=== PATIENT | female | born 1940 | race African-American/Black ===

== ENCOUNTER 2019-10-08 09:16 | Outpatient (CLI) | payer MEDICARE, SELFPAY ==
--- NOTE | ~2019-10-08 | MM_ITS ---
EXAMINATION: MM screening jamel BI w naomy HISTORY: Screening mammogram TECHNIQUE: Craniocaudal and mediolateral oblique 3-D tomosynthesis images were obtained and synthetic 2-D images were generated. CAD analysis was submitted and interpreted. COMPARISON: 08/25/2018, 08/08/2017 bilateral digital screening mammogram examinations BREAST PARENCHYMAL COMPOSITION: There are scattered areas of fibroglandular density. FINDINGS: There is a biopsy marker on each side. Bilateral benign calcifications. There is no evidenc e of suspicious mass, calcification, or architectural distortion to suggest malignancy in either [address]. There has been no suspicious interval change. IMPRESSION: 1. No mammographic evidence of malignancy. 2. Recommend routine screening mammography in one year. BI-RADS Category 2: Benign finding(s). Reviewed, dictated and finalized at location A.
== END 2019-10-08 09:17 | disposition home or self-care (01) ==
LOC: ANHIMG 09:23
PROVIDERS: PCP Family Medicine; Visit Provider Family Medicine
DX: Z12.31 Encounter for screening mammogram for malignant neoplasm of breast (principal)
CPT/HCPCS: 77063; 77067

== ENCOUNTER 2020-10-11 17:15 | Emergency (ER) | payer MEDICARE, SELFPAY ==
[2020-10-11 17:22] VITALS: BP 141/60; PULSE 93; RESP 16; TEMP 36.4; O2SAT 99
--- NOTE | 2020-10-11 17:22 | ED.SKABFB ---
HPI - Skin/Abscess/Foreign Bdy General Chief complaint: Skin/Abscess/Foreign Body Stated complaint: rash Time Seen by Provider: 10/11/20 17:30 Source: patient and RN notes reviewed Mode of arrival: ambulatory Limitations: no limitations History of Present Illness HPI narrative: 79-year-old female presents to the [facility] with itchy red bumps to the anterior upper mid chest. There are 3 bumps. Patient states it started last night and they just have gotten itchier and she has been scratching them. They are red, pink in color and mildly raised. Denies fevers. No signs of infection. Related Data Home Medications Medication Instructions Recorded Confirmed budesonide 160 mcg-glycopyr 9 2 inh INHALATION BID 03/24/20 10/11/20 mcg-formot 4.8 mcg/actuation HFA inhaler Allergies Allergy/AdvReac Type Severity Reaction Status Date / Time Penicillins Allergy Mild rash Verified 10/11/20 17:45 Review of Systems Review of Systems: All systems reviewed & are unremarkable except as noted in HPI and below Constitutional: Constitutional: Reports no additional constitutional complaints, Denies chills, Denies fever(s) and Denies weakness Cardiovascular: Cardiovascular: Reports no additional cardiovascular complaints Respiratory: Respiratory: Reports no additional respiratory complaints Musculoskeletal: Musculoskeletal: Reports no additional musculoskeletal complaints Integumentary/Breasts: Skin/Breast: Reports as per HPI and Reports rash (3 pink raised bumps) Neurologic: Reports system reviewed and no additional complaints, except as documented Psychiatric: Psychiatric: Reports no additional psychiatric complaints PMFSH Past Medical History Medical History (Updated 10/11/20 @ 17:26 by Stephanie Pascal) Benign reactive hypertension COPD (chronic obstructive pulmonary disease) Knee arthropathy Mixed hyperlipidemia Pulmonary HTN Surgical History Surgical History H/O total knee replacement S/P EVELIA (total abdominal hysterectomy) Total knee replacement status Family History Family History Mother Family history of kidney disease, Onset Age: 47 Patient's mother is Father Family history of kidney disease, Onset Age: 82 Patient's father is Sibling Patient's sister is Other Family history of chronic obstructive pulmonary disease Social History Social History Social History: Smoking status: Former smoker Tobacco type: cigarettes Second hand tobacco smoke exposure: No Smoking end date: 05/09/78 Alcohol intake: never Substance use: never Substance use type: does not use Gender identity (if verbalized by the patient): Female Comments At the time of my signature, I reviewed and agree with the nursing past medical, surgical, social, and family history. There is no relevant family history pertinent to the patient complaint. Exam Const: General: healthy appearing, no acute distress and alert Nutritional Appearance: well nourished Orientation/consciousness: patient oriented x3 Limitations: no limitations HENMT: Head: normal to inspection Eyes: Pupils: Equal, round and reactive pupils present Neck: Neck: normal visual inspection Chest: Chest palpation & inspection: normal inspection of the chest and no tenderness Chest/axillae images: 1. 3 pain, raised insect bite appearing areas that patient describes is very itchy Resp: Effort & Inspection: normal respiratory effort Auscultation: clear to auscultation bilaterally Cardio: Rate: regular rate Rhythm: regular rhythm : General: Yes no CVA tenderness Skin: General skin exam: normal color Neuro: General: patient oriented x3, moves all extremities and no meningeal signs Speech: normal speech Gait exam (Neur
== END 2020-10-11 17:41 | disposition home or self-care (01) ==
PROVIDERS: Emergency Provider Nurse Practitioner; PCP Family Medicine
DX: S20.364A Insect bite (nonvenomous) of middle front wall of thorax, initial encounter (principal); W57.XXXA Bitten or stung by nonvenomous insect and other nonvenomous arthropods, initial encounter; Z87.891 Personal history of nicotine dependence; J44.9 Chronic obstructive pulmonary disease, unspecified; E78.2 Mixed hyperlipidemia; I27.20 Pulmonary hypertension, unspecified; Z96.659 Presence of unspecified artificial knee joint
CPT/HCPCS: 99213; G0463

== ENCOUNTER 2020-10-29 16:53 | Outpatient (CLI) | payer MEDICARE, SELFPAY ==
--- NOTE | ~2020-10-29 | XR_ITS ---
EXAMINATION: XR sacroiliac joints min 3V DATE: 10/29/2020 17:20 INDICATION: Low back pain. TECHNIQUE: 3 views of the sacroiliac joints were obtained. COMPARISON: None. FINDINGS: Bone alignment is normal. No fracture. There is mild osteoarthritis of the sacroiliac joint s. There is moderate right hip osteoarthritis and mild left hip osteoarthritis. IMPRESSION: 1. Mild osteoarthritis of the sacroiliac joints. No evidence of inflammatory arthropathy. 2. 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 Reviewed, dictated and finalized at location A. IMPRESSION: 1. Mild osteoarthritis of the sacroiliac joints. No evidence of inflammatory ar thropathy. 2. 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
--- NOTE | ~2020-10-29 | XR_ITS ---
EXAMINATION: XR lumbar spine 2-3V DATE: 10/29/2020 17:20 INDICATION: Low back pain. TECHNIQUE: 3 views of lumbar spine were obtained. COMPARISON: None. FINDINGS: There is 4 degrees levocurvature of lumbar spine. Vertebral body heights are normal. There is moderately decreased disc height at L5-S1 with endplate remodeling. There are endplate osteophytes at all levels. 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 IMPRESSION: 1. Moderate lower lumbar spondylosis. Reviewed, dictated and finalized at location A.
== END 2020-10-29 16:54 | disposition home or self-care (01) ==
LOC: ANHIMG 16:56
PROVIDERS: PCP Family Medicine; Visit Provider Physician Assistant
DX: M47.898 Other spondylosis, sacral and sacrococcygeal region (principal); M16.0 Bilateral primary osteoarthritis of hip; M47.816 Spondylosis without myelopathy or radiculopathy, lumbar region
CPT/HCPCS: 72100; 72202

== ENCOUNTER 2020-10-30 15:59 | Outpatient (CLI) | payer MEDICARE, SELFPAY ==
--- NOTE | ~2020-10-30 | MM_ITS ---
EXAMINATION: MM screening jamel BI w naomy HISTORY: Screening mammogram TECHNIQUE: Craniocaudal and mediolateral oblique 3-D tomosynthesis images were obtained and synthetic 2-D images were generated. CAD analysis was submitted and interpreted. COMPARISON: 10/08/2019, or 01/2019, 08/08/2017 bilateral digital screening mammogram examinations BREAST PARENCHYMAL COMPOSITION: There are scattered areas of fibroglandular density. FINDINGS: Multiple breast biopsy markers are noted bilaterally. History of bilateral benign breast bi opsies. Numerous bilateral benign breast calcifications are again noted. There is no evidence of suspicious m ass, calcification, or architectural distortion to suggest malignancy in either breast. There has bee n no suspicious interval change. IMPRESSION: 1. No mammographic evidence of malignancy. 2. Recommend routine screening mammography in one year. BI-RADS Category 2: Benign finding(s). Reviewed, dictated and finalized at location A.
== END 2020-10-30 16:00 | disposition home or self-care (01) ==
LOC: ANHIMG 16:02
PROVIDERS: PCP Family Medicine; Visit Provider Family Medicine
DX: Z12.31 Encounter for screening mammogram for malignant neoplasm of breast (principal)
CPT/HCPCS: 77063; 77067

== ENCOUNTER 2021-06-14 09:08 | Emergency (ER) | payer MEDICARE, SELFPAY ==
--- NOTE | 2021-06-14 09:20 | ED.FEMALEGU ---
HPI - Female Genitourinary General Chief complaint: Urogenital-Female Stated complaint: UTI Time Seen by Provider: 06/14/21 09:22 Source: patient, RN notes reviewed and old records reviewed Mode of arrival: ambulatory Limitations: no limitations History of Present Illness HPI Narrative: 80-year-old female presents to the [facility] with complaints of a urinary symptoms. Patient reports that since Tuesday, 2 days has had frequency, urgency and pressure. Denies fevers, abdominal pains, flank pain. No nausea vomiting or diarrhea. Denies chest pain MD elicited complaint: UTI Related Data Allergies Allergy/AdvReac Type Severity Reaction Status Date / Time Penicillins Allergy Mild rash Verified 11/21/20 10:57 Review of Systems Review of Systems: All systems reviewed & are unremarkable except as noted in HPI and below Constitutional: Constitutional: Reports no additional constitutional complaints, Denies chills and Denies fatigue Eyes: Eyes: Reports no additional eye complaints ENT: Reports system reviewed and no additional complaints, except as documented Cardiovascular: Cardiovascular: Reports no additional cardiovascular complaints Respiratory: Respiratory: Reports no additional respiratory complaints Gastrointestinal: Gastrointestinal: Reports no additional gastrointestinal complaints, Denies abdominal pain, Denies diarrhea, Denies nausea and Denies vomiting Genitourinary: Genitourinary: Reports as per HPI, Denies hematuria, Reports nocturia, Reports dysuria, Denies flank pain, Denies urinary incontinence and Denies vaginal discharge Musculoskeletal: Musculoskeletal: Reports no additional musculoskeletal complaints and Denies back pain Integumentary/Breasts: Skin/Breast: Reports system reviewed and no additional complaints, except as docu Neurologic: Reports system reviewed and no additional complaints, except as documented Psychiatric: Psychiatric: Reports no additional psychiatric complaints Endocrine: Endocrine: Denies fatigue Allergic/Immunologic: Allergic/Immunologic: Reports no additional allergic/immunologic complaints PENDING SALE TO [facility] Past Medical History Medical History (Updated 06/14/21 @ 09:31 by Stephanie Pascal) Benign reactive hypertension COPD (chronic obstructive pulmonary disease) Knee arthropathy Mixed hyperlipidemia Pulmonary HTN Surgical History Surgical History H/O total knee replacement S/P EVELIA (total abdominal hysterectomy) Total knee replacement status Family History Family History Mother Family history of kidney disease, Onset Age: 47 Patient's mother is Father Family history of kidney disease, Onset Age: 82 Patient's father is Sibling Patient's sister is Other Family history of chronic obstructive pulmonary disease Social History Social History Social History: Smoking status: Former smoker Tobacco type: cigarettes Second hand tobacco smoke exposure: No Smoking end date: 05/09/78 Alcohol intake: never Substance use: never Substance use type: does not use Gender identity (if verbalized by the patient): Female Sexual Orientation (if Verbalized by the Patient): Straight or Heterosexual Comments At the time of my signature, I reviewed and agree with the nursing past medical, surgical, social, and family history. There is no relevant family history pertinent to the patient complaint. Exam Const: General: healthy appearing, no acute distress and alert Nutritional Appearance: well nourished Orientation/consciousness: patient oriented x3 Limitations: no limitations HENMT: Head: normal to inspection Eyes: Conjunctivae: conjunctivae normal Pupils: Equal, round and reactive pupils present Neck: Neck: normal visual inspection, no lymphadenopa
[2021-06-14 09:25] VITALS: BP 126/70; PULSE 86; RESP 18; TEMP 36.5; O2SAT 100
== END 2021-06-14 09:35 | disposition home or self-care (01) ==
PROVIDERS: Emergency Provider Nurse Practitioner; PCP Family Medicine
DX: N30.01 Acute cystitis with hematuria (principal); Z87.891 Personal history of nicotine dependence; J44.9 Chronic obstructive pulmonary disease, unspecified; E78.2 Mixed hyperlipidemia; I27.20 Pulmonary hypertension, unspecified; Z96.659 Presence of unspecified artificial knee joint
CPT/HCPCS: 81003; 87077; 87086; 87186; 99213; G0463

== ENCOUNTER 2021-10-07 17:58 | Emergency (ER) | payer MEDICARE, SELFPAY ==
[2021-10-07 18:18] VITALS: BP 142/68; PULSE 85; RESP 16; TEMP 36.4; O2SAT 100
--- NOTE | 2021-10-07 18:44 | ED.FEMALEGU ---
HPI - Female Genitourinary General Chief complaint: Urogenital-Female Stated complaint: uti Time Seen by Provider: 10/07/21 18:45 Source: patient and RN notes reviewed Mode of arrival: ambulatory Limitations: no limitations History of Present Illness HPI Narrative: 80-year-old female presented for complaint of burning with urination, urinary frequency, and suprapubic pressure for about 3 days. Endorses occasional diarrhea. endorses a history of UTIs and states this feels the same. She denies associated nausea, vomiting, flank pain, hematuria, fevers or chills. She has not taken anything for symptoms. Related Data Allergies Allergy/AdvReac Type Severity Reaction Status Date / Time Penicillins Allergy Mild rash Verified 10/07/21 18:49 Review of Systems Review of Systems: CONSTITUTIONAL: Denies body aches, fever, chills, or sweats. CARDIOVASCULAR: Denies chest pain, palpitations, or edema. RESPIRATORY: Denies cough or dyspnea. GASTROINTESTINAL: Denies abdominal pain, nausea, vomiting, or diarrhea. GENITOURINARY: Reports dysuria, frequency, urgency MUSCULOSKELETAL: Denies back pain or myalgia. [facility] Past Medical History Medical History Benign reactive hypertension COPD (chronic obstructive pulmonary disease) Crossover toe deformity of right foot Knee arthropathy Mixed hyperlipidemia JOSE on CPAP Pulmonary HTN Surgical History Surgical History H/O total knee replacement S/P EVELIA (total abdominal hysterectomy) Total knee replacement status Family History Family History Mother Family history of kidney disease, Onset Age: 47 Patient's mother is Father Family history of kidney disease, Onset Age: 82 Patient's father is Sibling Patient's sister is Other Family history of chronic obstructive pulmonary disease Social History Social History Social History: Smoking status: Former smoker Tobacco type: cigarettes Second hand tobacco smoke exposure: No Smoking end date: 05/09/78 Alcohol intake: never Substance use: never Substance use type: does not use Gender identity (if verbalized by the patient): Female Sexual Orientation (if Verbalized by the Patient): Straight or Heterosexual Comments At time of signature, I have reviewed and agree with nursing past medical, surgical, social and family history unless otherwise noted. Please see nursing chart for further information. There is no relevant family history pertinent to the presenting complaint Exam Narrative: GENERAL: Well-appearing ENT: Mucous membranes pink and moist. NECK: Normal AROM. Supple. CHEST: No respiratory distress. Clear to auscultation. HEART: Regular rate and rhythm. ABDOMEN: Soft, nontender, nondistended, normal active bowel sounds. No CVA tenderness SKIN: Warm, dry, no rash. NEURO: No focal deficits. Alert and oriented x3. Gait steady. PSYCH: Normal affect. No signs of depression or anxiety. Course Course Emergency Course: Patient is aware of diagnosis, understands and agrees to treatment plan. Anticipatory guidance given. Patient agrees to follow-up as directed and is aware of reasons to seek care at the emergency department. Portions of this record may have been created with voice recognition software Level of Care: Express Care Visit Vital Signs Vital signs: Vital Signs Temperature 97.5 F L 10/07/21 18:18 Pulse Rate 85 10/07/21 18:18 Respiratory Rate 16 10/07/21 18:18 Blood Pressure 142/68 H 10/07/21 18:18 Pulse Oximetry 100 10/07/21 18:18 Oxygen Delivery Room Air 10/07/21 18:18 Temperature 97.5 F L 10/07/21 18:18 Pulse Rate 85 10/07/21 18:18 Respiratory Rate 16 10/07/21
== END 2021-10-07 19:03 | disposition home or self-care (01) ==
PROVIDERS: Emergency Provider Nurse Practitioner Family; PCP Family Medicine
DX: R30.0 Dysuria (principal); Z87.891 Personal history of nicotine dependence; J44.9 Chronic obstructive pulmonary disease, unspecified; E78.2 Mixed hyperlipidemia; G47.33 Obstructive sleep apnea (adult) (pediatric); I10 Essential (primary) hypertension; I27.20 Pulmonary hypertension, unspecified
CPT/HCPCS: 81003; 99213; G0463

== ENCOUNTER 2021-12-07 15:25 | Outpatient (CLI) | payer MEDICARE, SELFPAY ==
--- NOTE | ~2021-12-07 | MM_ITS ---
EXAMINATION: MM screening jamel BI w naomy HISTORY: Screening TECHNIQUE: Craniocaudal and mediolateral oblique 3-D tomosynthesis images were obtained and synthetic 2-D images were generated. CAD analysis was submitted and interpreted. COMPARISON: Comparison to multiple prior studies sequentially, with oldest reviewed study dated 01/31. BREAST PARENCHYMAL COMPOSITION: The breasts are heterogenously dense, which may obscure small masses FINDINGS: There is a new focal asymmetry laterally in the right breast on CC view. There are stable b enign-appearing bilateral breast calcifications. The left breast is stable without evidence for malig parul. IMPRESSION: 1. New focal right breast asymmetry laterally on CC view. 2. Additional mammographic views and possible breast ultrasound are recommended. BI-RADS Category 0: Incomplete: Needs additional imaging evaluation. Reviewed, dictated and finalized at location A. IMPRESSION: 1. New focal right breast asymmetry laterally on CC view. 2. Additional mammographic views and possible breast ultrasound are recommended . BI-RADS Category 0: Incomplete: Needs additional imaging evaluation.
== END 2021-12-07 15:26 | disposition home or self-care (01) ==
LOC: ANHIMG 15:27
PROVIDERS: PCP Family Medicine; Visit Provider Family Medicine
DX: Z12.31 Encounter for screening mammogram for malignant neoplasm of breast (principal); R92.8 Other abnormal and inconclusive findings on diagnostic imaging of breast
CPT/HCPCS: 77063; 77067

== ENCOUNTER 2022-01-19 11:17 | Outpatient (CLI) | payer MEDICARE, SELFPAY ==
--- NOTE | ~2022-01-19 | MMUS_ITS ---
EXAMINATION: MM diagnostic jamel RT w naomy, US breast RT limited HISTORY: New focal right breast asymmetry reported in lateral right breast on 12/08/2019 screening mamm ogram TECHNIQUE: Additional U spot MLO and CC 3-D tomosynthesis images of the right breast were performed a nd synthetic 2-D images were generated. CAD analysis was submitted and interpreted. High resolution u pper outer and lower-outer quadrant right breast ultrasound was performed. COMPARISON: 12/07/2021 bilateral screening mammogram 10/26/2020, 10/08/2019 bilateral screening mammogram examinations FINDINGS: MAMMOGRAPHIC FINDINGS: Biopsy markers are noted. Numerous benign calcifications are scattered throughout the right breast. N o suspicious mass or interval architectural distortion is evident mammographically. No skin thickenin g or retraction. ULTRASOUND: Right breast 9:00 1 cm from nipple: 2.8 x 4.1 x 4.7 mm cyst 9:00 near nipple: Approximately 5 mm irregular antiparallel hypoechoic area with mild shadowing; ultr asound-guided biopsy is recommended. There is some shadowing from calcification at 12:00. IMPRESSION: 1. Irregular and typed parallel hypoechoic approximately 5 mm lesion of right breast at 9:00 near nip ple 2. Ultrasound-guided biopsy of 9:00 hypoechoic area is recommended BI-RADS category 4, suspicious findings. Dr. Olea telephoned the report and ultrasound-guided biopsy recommendation of the right breast at 9:0 0 near the nipple on 01/19/2022 at 1323 hours to the doctor's exchange. Reviewed, dictated and finalized at location A. IMPRESSION: 1. Irregular and typed parallel hypoechoic approximately 5 mm lesion of right b reast at 9:00 near nipple 2. Ultrasound-guided biopsy of 9:00 hypoechoic area is recommended BI-RADS category 4, suspicious findings. Dr. Olea telephoned the report and ultrasound-guided biopsy recommendation of t he right breast at 9:00 near the nipple on 01/19/2022 at 1323 hours to the docto r's exchange.
== END 2022-01-19 11:18 | disposition home or self-care (01) ==
PROVIDERS: PCP Family Medicine; Visit Provider Family Medicine
DX: N63.15 Unspecified lump in the right breast, overlapping quadrants (principal); R92.8 Other abnormal and inconclusive findings on diagnostic imaging of breast; N60.01 Solitary cyst of right breast
CPT/HCPCS: 76642; 77061; 77065; G0279

== ENCOUNTER 2022-01-29 09:52 | Outpatient (CLI) | payer MEDICARE, SELFPAY ==
--- NOTE | ~2022-01-29 | US_ITS ---
EXAMINATION: Consultation US HISTORY: Patient presents for biopsy of a right breast mass at the 9:00 location. COMPARISON: 01/19/2022, 12/02/2014 TECHNIQUE: Limited right breast ultrasound is performed at the 9:00 location near the nipple. FINDINGS: The right breast mass identified for biopsy hasn't appearance similar to the comparison ult rasounds. There is also a questionable biopsy marker in the mass. It was discussed with the patient t hat this mass may have previously undergone biopsy and a course of short-term follow-up was decided u larissa. IMPRESSION: Probably benign right breast mass. Follow-up diagnostic right mammogram and ultrasound in six months are recommended. BI-RADS category 3, probably benign findings. Reviewed, dictated and finalized at location A. IMPRESSION: Probably benign right breast mass. Follow-up diagnostic right mammogram and ult rasound in six months are recommended. BI-RADS category 3, probably benign findings.
== END 2022-01-29 09:53 | disposition home or self-care (01) ==
LOC: ANHIMG 09:53
PROVIDERS: PCP Family Medicine; Visit Provider Nurse Practitioner Gerontology
DX: R92.8 Other abnormal and inconclusive findings on diagnostic imaging of breast (principal)
CPT/HCPCS: 99199

== ENCOUNTER 2022-02-01 16:40 | Emergency (ER) | payer MEDICARE, SELFPAY ==
[2022-02-01 17:04] VITALS: BP 138/70; PULSE 94; RESP 16; TEMP 37.2; O2SAT 100
--- NOTE | 2022-02-01 18:05 | ED.FEMALEGU ---
HPI - Female Genitourinary General Chief complaint: Urogenital-Female Stated complaint: UTI Time Seen by Provider: 02/01/22 18:06 Source: patient and RN notes reviewed Mode of arrival: ambulatory Limitations: no limitations History of Present Illness HPI Narrative: 81-year-old female presents concern for 4-day history of painful urination, frequency, lower abdominal pressure, chills. She reports a history of problems with urination, urinary tract symptoms. She denies back pain, abdominal pain, fever, body aches, nausea, vomiting. MD elicited complaint: UTI Related Data Home Medications Medication Instructions Recorded Confirmed budesonide 160 mcg-glycopyr 9 2 inh inhalation DIRECTED 02/01/22 02/01/22 mcg-formot 4.8 mcg/actuation HFA inhaler ([employer]) Allergies Allergy/AdvReac Type Severity Reaction Status Date / Time Penicillins Allergy Mild rash Verified 02/01/22 16:43 Review of Systems Review of Systems: CONSTITUTIONAL: Denies malaise, chills, sweats, or fever. CARDIOVASCULAR: Denies chest pain, palpitations, or edema. RESPIRATORY: Denies cough or dyspnea. GASTROINTESTINAL: Denies abdominal pain, nausea, vomiting, diarrhea GENITOURINARY: Reports dysuria, frequency, suprapubic pressure. Denies flank pain or hematuria. SKIN: Denies rash or itching. MUSCULOSKELETAL: Denies back pain or myalgia. All systems reviewed & are unremarkable except as noted in HPI and below PMFSH Past Medical History Medical History Benign reactive hypertension COPD (chronic obstructive pulmonary disease) Crossover toe deformity of right foot Knee arthropathy Mixed hyperlipidemia JOSE on CPAP Pulmonary HTN Surgical History Surgical History H/O total knee replacement S/P EVELIA (total abdominal hysterectomy) Total knee replacement status Family History Family History Mother Family history of kidney disease, Onset Age: 47 Patient's mother is Father Family history of kidney disease, Onset Age: 82 Patient's father is Sibling Patient's sister is Other Family history of chronic obstructive pulmonary disease Social History Social History (Reviewed 12/31/21 @ 10:03 by Sona Fernández Social History: Smoking status: Former smoker Tobacco type: cigarettes Second hand tobacco smoke exposure: No Smoking end date: 05/09/78 Alcohol intake: never Substance use: never Substance use type: does not use Gender identity (if verbalized by the patient): Female Sexual Orientation (if Verbalized by the Patient): Straight or Heterosexual Comments At time of signature, agree with nursing past medical, surgical, social and family history. There is no relevant family history pertinent to the presenting complaint Exam Narrative: GENERAL: Well-appearing, well-nourished, and in no acute distress. HEAD: Normocephalic. EYES: PERRLA, conjunctivae clear. NECK: Supple. No lymphadenopathy CHEST: Clear to auscultation. No respiratory distress. HEART: Regular rate and rhythm. ABDOMEN: Soft, nontender upon palpation, nondistended, normal active bowel sounds, no palpable or pulsatile masses, no guarding. No CVA tenderness SKIN: Warm, dry, no rash. NEURO: Alert and oriented x3. PSYCH: Normal mood and affect Course Course Emergency Course: Patient is aware of diagnosis, understands and agrees to treatment plan. Anticipatory guidance given. Patient agrees to follow-up as directed and is aware of reasons to seek care at the emergency department. Portions of this record may have been created with voice recognition software Level of Care: Express Care Visit Vital Signs Vital signs: Vital Signs Temperature 99.0 F 02/01/22 17:04 Pulse Rate 94 02/01/22 17:04 Respiratory R
== END 2022-02-01 18:23 | disposition home or self-care (01) ==
PROVIDERS: Emergency Provider Nurse Practitioner; PCP Family Medicine
DX: R30.0 Dysuria (principal); R35.0 Frequency of micturition; J44.9 Chronic obstructive pulmonary disease, unspecified; E78.5 Hyperlipidemia, unspecified; G47.33 Obstructive sleep apnea (adult) (pediatric); Z96.659 Presence of unspecified artificial knee joint; Z87.891 Personal history of nicotine dependence
CPT/HCPCS: 81003; 87086; 99213; G0463

== ENCOUNTER 2022-02-23 01:16 | Day surgery (SDC) | payer MEDICARE, SELFPAY ==
[2022-02-08 13:51] VITALS: BMI 31.8
[2022-02-23 08:31] VITALS: BP 143/70; PULSE 82; RESP 18; TEMP 36.1; O2SAT 97
[2022-02-23] MEDS: LACTATED RINGERS 1,000 ML 150 ML IV CONT (08:33)
--- NOTE | 2022-02-23 09:12 | PM.HPGS ---
History of Present Illness History of Present Illness Consent: Risks, benefits, and alternatives have been discussed and questions answered. Patient agrees to proceed with procedure. Chief complaint: hx colon polyps Narrative: Jayro Arenas is a 81 year old female Presents for surveillance colonoscopy. Patient gives a history of prior colon polyps more than 5 years ago performed elsewhere. Patient reports that her current weight appetite and bowel movements are normal. She denies abdominal pain. She denies any bleeding. She has normal stools are present. Family history is noncontributory. Review of Systems Review of Systems: Review of systems is noncontributory. [facility] Past Medical History Medical History Benign reactive hypertension COPD (chronic obstructive pulmonary disease) Crossover toe deformity of right foot Knee arthropathy Mixed hyperlipidemia JOSE on CPAP Pulmonary HTN Surgical History Surgical History H/O total knee replacement S/P EVELIA (total abdominal hysterectomy) Total knee replacement status Family History Family History Mother Family history of kidney disease, Onset Age: 47 Patient's mother is Father Family history of kidney disease, Onset Age: 82 Patient's father is Sibling Patient's sister is Other Family history of chronic obstructive pulmonary disease Social History Social History Social History: Smoking packs per day: 0.5 Smoking cigarettes per day: 10.0 Years smoked: 30 Smoking pack-years: 15.00 Smoking status: Former smoker Tobacco type: cigarettes Second hand tobacco smoke exposure: No Smoking end date: 05/09/78 Alcohol intake: never Substance use: never Substance use type: does not use Living arrangements: with family Gender identity (if verbalized by the patient): Female Sexual Orientation (if Verbalized by the Patient): Straight or Heterosexual Spiritual care concerns: No Meds Home Medications and Allergies Home Medications Medication Instructions Recorded Confirmed Type atorvastatin 10 mg tablet 10 mg PO DAILY #90 tabs 12/31/21 02/23/22 Rx famotidine 40 mg tablet 40 mg PO DAILY #90 tabs 12/31/21 02/23/22 Rx hydrochlorothiazide 12.5 mg tablet 12.5 mg PO DAILY #90 tabs 12/31/21 02/23/22 Rx budesonide 160 mcg-glycopyr 9 2 inh inhalation DIRECTED 02/01/22 02/23/22 History mcg-formot 4.8 mcg/actuation HFA inhaler ([employer]) albuterol 90 mcg/actuation aerosol 90 mcg inhalation PRN 02/08/22 02/23/22 History inhaler carvedilol 12.5 mg tablet 12.5 mg PO Q12H 02/23/22 02/23/22 History Allergies Allergy/AdvReac Type Severity Reaction Status Date / Time Penicillins Allergy Mild rash Verified 02/23/22 08:27 Sulfa (Sulfonamide Allergy Rash Verified 02/23/22 08:27 Antibiotics) Vital Signs Vital Signs - 24 hr 02/23/22 08:31 Temperature 96.9 F L Pulse Rate 82 Respiratory Rate 18 Blood Pressure 143/70 H Pulse Oximetry 97 Oxygen Delivery Room Air Exam Narrative: Physical exam reveals patient to be alert. Vital signs stable. HEENT exam is unremarkable. Patient is anicteric. Lungs are clear to auscultation and percussion. Heart is without murmur or extra sounds. Abdomen bowel sounds are present soft nontender with no organomegaly. Digital external rectal exam is normal. Assessment and Plan Assessment and plan (1) Colon cancer screening: Code(s): Z12.11 - Encounter for screening for malignant neoplasm of colon Status: Acute Assessment and Plan: Patient presents for neoplasia screening colonoscopy. She reports prior history of colon polyps. Colonoscopy to be performed today. Further recom
--- NOTE | 2022-02-23 09:15 | WPDANESEPPF ---
Anes - Initial Pre Proc Eval Procedure: Operation Date: 02/23/22 09:45 Proposed Procedures p Screening Colonoscopy - Nabil Redmond MD Date/Time: 02/23/22 09:15 Surgeon: Nabil Redmond MD Pre Op Diagnosis: hx colon polyps Patient Data Age: 81 Gender: F Height: 1.63 m Weight: 83.2 kg Last Vital Signs Temp 96.9 F L 02/23/22 08:31 Pulse 82 02/23/22 08:31 Resp 18 02/23/22 08:31 BP 143/70 H 02/23/22 08:31 Pulse Ox 97 02/23/22 08:31 O2 Del Method Room Air 02/23/22 08:31 Allergies Allergy/AdvReac Type Severity Reaction Status Date / Time Penicillins Allergy Mild rash Verified 02/23/22 08:27 Sulfa (Sulfonamide Allergy Rash Verified 02/23/22 08:27 Antibiotics) Home Medications Medication Instructions Recorded Confirmed Type atorvastatin 10 mg tablet 10 mg PO DAILY #90 tabs 12/31/21 02/23/22 Rx famotidine 40 mg tablet 40 mg PO DAILY #90 tabs 12/31/21 02/23/22 Rx hydrochlorothiazide 12.5 mg tablet 12.5 mg PO DAILY #90 tabs 12/31/21 02/23/22 Rx budesonide 160 mcg-glycopyr 9 2 inh inhalation DIRECTED 02/01/22 02/23/22 History mcg-formot 4.8 mcg/actuation HFA inhaler (Breztri Aerosphere) albuterol 90 mcg/actuation aerosol 90 mcg inhalation PRN 02/08/22 02/23/22 History inhaler carvedilol 12.5 mg tablet 12.5 mg PO Q12H 02/23/22 02/23/22 History Patient hx anesthesia problems: none Family hx anesthesia problems: none Results Review: All pre-operative results and documents have been reviewed as part of the pre-operative evaluation. [facility] Past Medical History Medical History Benign reactive hypertension COPD (chronic obstructive pulmonary disease) Crossover toe deformity of right foot Knee arthropathy Mixed hyperlipidemia JOSE on CPAP Pulmonary HTN Surgical History Surgical History H/O total knee replacement S/P EVELIA (total abdominal hysterectomy) Total knee replacement status Family History Family History Mother Family history of kidney disease, Onset Age: 47 Patient's mother is Father Family history of kidney disease, Onset Age: 82 Patient's father is Sibling Patient's sister is Other Family history of chronic obstructive pulmonary disease Social History Social History Social History: Smoking packs per day: 0.5 Smoking cigarettes per day: 10.0 Years smoked: 30 Smoking pack-years: 15.00 Smoking status: Former smoker Tobacco type: cigarettes Second hand tobacco smoke exposure: No Smoking end date: 05/09/78 Alcohol intake: never Substance use: never Substance use type: does not use Living arrangements: with family Gender identity (if verbalized by the patient): Female Sexual Orientation (if Verbalized by the Patient): Straight or Heterosexual Spiritual care concerns: No Anes - Eval Final PreProcedure Day of Procedure 02/23/22 09:15 Patient weight: obese Heart: regular rate and rhythm Lungs: clear to auscultation Airway: Mallampati scale class II Neurological: alert and oriented Last oral intake: >/= 8 hours ASA classification: III Emergent: no Anesthetic plan: proceed Anesthesia type and monitoring: general GIVS and standard monitoring Results Review: All pre-operative results and documents have been reviewed as part of the pre-operative evaluation. Informed Consent: The patient's anesthetic plan and its attendant risks and benefits were discussed with the patient/family/POA. Questions were solicited and answers provided to the satisfaction of the patient/family/POA.
[2022-02-23 10:52] VITALS: BP 117/63; PULSE 72; RESP 24; O2SAT 99
[2022-02-23 11:02] VITALS: BP 119/72; PULSE 74; RESP 16; O2SAT 100
[2022-02-23 11:12] VITALS: BP 143/75; PULSE 66; RESP 18; O2SAT 99
== END 2022-02-23 11:17 | disposition home or self-care (01) ==
PROVIDERS: PCP Family Medicine; Visit Provider Internal Medicine Gastroenterology
PROC: 0DJD8ZZ Inspection of Lower Intestinal Tract, Via Natural or Artificial Opening Endoscopic (ICD-10-PCS; CPT 45378; principal; 2022-02-23 09:45)
DX: Z12.11 Encounter for screening for malignant neoplasm of colon (principal); Z86.010 Personal history of colon polyps; K64.8 Other hemorrhoids; K57.30 Diverticulosis of large intestine without perforation or abscess without bleeding; Z79.51 Long term (current) use of inhaled steroids; J44.9 Chronic obstructive pulmonary disease, unspecified; I10 Essential (primary) hypertension; E78.2 Mixed hyperlipidemia; I27.20 Pulmonary hypertension, unspecified; Z87.891 Personal history of nicotine dependence; E66.9 Obesity, unspecified; Z68.31 Body mass index [BMI] 31.0-31.9, adult
CPT/HCPCS: G0105; J2001; J2704; J7120

== ENCOUNTER 2022-08-26 13:53 | Outpatient (CLI) | payer MEDICARE, SELFPAY ==
--- NOTE | ~2022-08-26 | MMUS_ITS ---
EXAMINATION: MM diagnostic jamel RT w naomy, US breast RT limited HISTORY: Six-month follow-up for probably benign right breast mass TECHNIQUE: Craniocaudal, mediolateral, and mediolateral oblique 3-D tomosynthesis images of the breas ts were performed and synthetic 2-D images were generated. CAD analysis was submitted and interpreted . High resolution limited right breast ultrasound was performed. COMPARISON: 01/29/2022, 01/19/2022, 12/07/2021, 10/30/2020, 10/08/2019 BREAST PARENCHYMAL COMPOSITION: There are scattered areas of fibroglandular density. FINDINGS: MAMMOGRAPHIC FINDINGS: Scattered benign-appearing calcifications are present. No suspicious mass, calcification, or architec tural distortion are identified to suggest malignancy. There has been no suspicious interval change. ULTRASOUND: The previously described mass at the 9:00 location near the nipple is not definitely identified. No s uspicious cystic or solid mass is seen. IMPRESSION: 1. Previously described right breast mass is not definitely identified. 2. Routine screening mammography is recommended, due in six months. BI-RADS Category 2: Benign finding(s). Reviewed, dictated and finalized at location A. IMPRESSION: 1. Previously described right breast mass is not definitely identified. 2. Routine screening mammography is recommended, due in six months. BI-RADS Category 2: Benign finding(s).
== END 2022-08-26 13:54 | disposition home or self-care (01) ==
PROVIDERS: PCP Family Medicine; Visit Provider Family Medicine
DX: R92.8 Other abnormal and inconclusive findings on diagnostic imaging of breast (principal)
CPT/HCPCS: 76642; 77061; 77065; G0279

== ENCOUNTER 2022-12-28 10:53 | Emergency (ER) | payer MEDICARE, SELFPAY ==
--- NOTE | 2022-12-28 11:03 | ED.FEMALEGU ---
HPI - Female Genitourinary General Chief complaint: Urogenital-Female Stated complaint: urinary problem Source: patient and RN notes reviewed History of Present Illness HPI Narrative: 82 yo F presents to urgent care with complaints of lower abdominal pressure and burning with urination since Tuesday. Denies any fevers, chills, vomiting, diarrhea, chest pain, or SOB. Pt states she tried drinking a lot of cranberry juice yesterday with no relief. Currently taking azithromycin [id number] for COPD. Related Data Home Medications Medication Instructions Recorded Confirmed budesonide 160 mcg-glycopyr 9 2 inh inhalation DIRECTED 02/01/22 12/28/22 mcg-formot 4.8 mcg/actuation HFA inhaler (Breztri Aerosphere) albuterol 90 mcg/actuation aerosol 90 mcg inhalation PRN 02/08/22 12/28/22 inhaler Allergies Allergy/AdvReac Type Severity Reaction Status Date / Time Penicillins Allergy Mild rash Verified 12/28/22 11:01 Sulfa (Sulfonamide Allergy Rash Verified 12/28/22 11:01 Antibiotics) Review of Systems Review of Systems: CONSTITUTIONAL: Denies fever, chills, or sweats. EYES: Denies visual changes, redness, or discharge. ENT: Denies otalgia and sore throat CARDIOVASCULAR: Denies chest pain, palpitations, or edema. RESPIRATORY: Denies cough or dyspnea. GASTROINTESTINAL: Denies abdominal pain, nausea, vomiting, or diarrhea. GENITOURINARY: lower bladder pressure and burning with urination SKIN: Denies rash or itching. MUSCULOSKELETAL: Denies back pain, joint pain, or myalgia. NEUROLOGIC: Denies headache, numbness, or weakness. Pertinent positives per HPI. [facility] Past Medical History Medical History Benign reactive hypertension COPD (chronic obstructive pulmonary disease) Crossover toe deformity of right foot Knee arthropathy Mixed hyperlipidemia JOSE on CPAP Pulmonary HTN Surgical History Surgical History H/O total knee replacement S/P EVELIA (total abdominal hysterectomy) Total knee replacement status Family History Family History Mother Family history of kidney disease, Onset Age: 47 Patient's mother is Father Family history of kidney disease, Onset Age: 82 Patient's father is Sibling Patient's sister is Other Family history of chronic obstructive pulmonary disease Social History Social History Social History: Smoking packs per day: 0.5 Smoking cigarettes per day: 10.0 Years smoked: 30 Smoking pack-years: 15.00 Smoking status: Former smoker Tobacco type: cigarettes Second hand tobacco smoke exposure: No Smoking end date: 05/09/78 Alcohol intake: never Substance use: never Substance use type: does not use Lack of Transportation: No Lack of Food: Never True Current Housing: I Have Housing Concerned About Future Housing: No Difficulty Paying Gas/Electric Bills: No Difficulty Paying for Meds: No Currently Unemployed: YES Education: Decline to Answer Difficulty w/ Childcare or Family Care: No Living arrangements: with family Occupation/Education: retired Gender identity (if verbalized by the patient): Female Sexual Orientation (if Verbalized by the Patient): Straight or Heterosexual Spiritual care concerns: No Comments At the time of my signature, I reviewed and agree with the nursing past medical, surgical, social, and family history. There is no relevant family history pertinent to the patient complaint. Exam Narrative: GENERAL: This is a well-nourished, well-developed patient, in no apparent distress. HEAD: normocephalic, atraumatic. EYES: Sclera clear/white. Vision is grossly intact. EARS: External ears normal, auditory
[2022-12-28 11:08] VITALS: BP 132/71; PULSE 89; RESP 16; TEMP 36.7; O2SAT 99
== END 2022-12-28 11:30 | disposition home or self-care (01) ==
PROVIDERS: Emergency Provider Nurse Practitioner Family; PCP Family Medicine
DX: N39.0 Urinary tract infection, site not specified (principal); Z87.891 Personal history of nicotine dependence; J44.9 Chronic obstructive pulmonary disease, unspecified; E78.2 Mixed hyperlipidemia; G47.33 Obstructive sleep apnea (adult) (pediatric); I27.20 Pulmonary hypertension, unspecified
CPT/HCPCS: 81003; 87077; 87086; 87186; 99213; G0463

== ENCOUNTER 2023-01-29 11:01 | Observation (INO) | payer MEDICARE, SELFPAY ==
[2023-01-29] VITALS (24 sets, daily range): BP systolic 128–145; BP diastolic 56–70; PULSE 70–84; RESP 12–24; TEMP 36.4; O2SAT 97–100; BMI 32.4
--- NOTE | ~2023-01-29 | MR_ITS ---
EXAMINATION: MR brain/brain stem wo/w con DATE: 01/30/2023 08:08 INDICATION: Left hand weakness TECHNIQUE: Magnetic resonance imaging (MRI) of the brain and brainstem was performed without intraven ous contrast. Sequences included sagittal and axial T1-weighted SE, axial diffusion-weighted FS SE, a xial T2*-weighted GRE, axial T2-weighted FLAIR Propeller, and axial T2-weighted Propeller. Apparent d iffusion coefficient (ADC) maps were created. COMPARISON: CTA brain dated 01/29/2023. FINDINGS: There is an acute/subacute right parietal infarction. No significant mass effect. No hemorr aldo. No ventriculomegaly or midline shift. There are scattered mild periventricular and subcortical white matter changes, most likely related to small vessel ischemic disease (microangiopathy). Midline sagittal images demonstrate a normal corpus callosum and craniovertebral junction. No abnormal contr ast enhancement. Paranasal sinuses are unremarkable. Orbits are symmetric without disconjugate gaze. IMPRESSION: 1. 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 Reviewed, dictated and finalized at location A. IMPRESSION: 1. 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
--- NOTE | ~2023-01-29 | CT_ITS ---
EXAMINATION: CTA brain carotid DATE: 01/29/2023 12:46 CDT INDICATION: Left hand weakness TECHNIQUE: Computed tomographic angiography (CTA) of the head was performed without and with 100 mL O mnipaque-350 intravenous contrast. CTA of the neck was performed with intravenous contrast. The dose- length product was 1622.98 mGy-cm. Maximum intensity projection and volume rendered 3D-reconstruction s were created by the technologist on a separate workstation. Automated exposure control and iterativ e reconstruction technique were employed. COMPARISON: CT dated 06/07/2018. FINDINGS: HEAD CTA: Normal brain parenchymal volume for age. No acute intracranial hemorrhage, infarction, mass or mass effect. No ventriculomegaly or midline shift. There are scattered mild periventricular and s ubcortical white matter changes, most likely related to small vessel ischemic disease (microangiopath y). No acute intracranial hemorrhage, infarction, mass or mass effect. The anterior, middle and poste rior cerebral arteries are symmetric. No significant stenosis, occlusion or aneurysm. There is athero sclerosis of the cavernous segments of the internal carotid arteries. The vertebral arteries are codo minant. No significant abnormality of the basilar artery. Paranasal sinuses and mastoids are pneumati zed. No depressed skull fractures. NECK CTA: There is atherosclerosis of the aorta and great vessels. There is mild atherosclerosis of t he carotid bifurcations. No evidence for dissection or occlusion. Vertebral arteries are symmetric. T here are multiple small subcentimeter hypodensities of the thyroid gland, too small to characterize, most consistent with multinodular goiter. No significant cervical lymphadenopathy. There is emphysema . There is less than 10% stenosis of the proximal right internal carotid artery relative to normal dist al artery lumen diameter (NASCET criteria). There is less than 20% stenosis of the proximal left inte rnal carotid artery relative to normal distal artery lumen diameter. IMPRESSION: 1: No acute intracranial abnormality. 2: No significant vascular abnormality of the head or neck. 3: Chronic age-related findings. Reviewed, dictated and finalized at location A.
--- NOTE | 2023-01-29 11:24 | ECG_ITS ---
Measurements Intervals [place] Rate: 80 P: 70 IN: 155 QRS: 17 QRSD: 86 T: 14 QT: 373 QTc: 430 Interpretive Statements SINUS RHYTHM BORDERLINE ST-T WAVE ABNORMALITY- INFERIOR LEADS BASELINE ARTIFACT- I, III, AVR, AVL, V4 BORDERLINE ECG NO PREVIOUS ECG AVAILABLE FOR COMPARISON Electronically Signed On 01-29-2023 14:41:33 CDT by Carlo Howell D.O.
[2023-01-29 11:54] LABS: INR 0.9; Prothrombin Time 12.7 Seconds (11.1-14.7)
[2023-01-29 11:55] LABS: Partial Thromboplastin Time 28.3 SECONDS (22.3-36.8)
--- NOTE | 2023-01-29 12:17 | ED.GENADULT ---
HPI - General Adult General Chief complaint: Neuro Symptoms/Deficit Stated complaint: Left Arm Stiffness, Difficulty with Left Hand Time Seen by Provider: 01/29/23 11:22 History of Present Illness HPI narrative: 82-year-old female present to the emergency department for evaluation of tingling of her left hand. Patient states that when she woke up this morning she noticed that she had some tingling of her left hand. Patient states she did have some discoordination of this and denied any numbness but did report some pain and tingling. Patient has no prior history of CVA. Patient reports she did start working her hand and felt that this improved her symptoms. Patient denied any visual changes patient denied any numbness weakness of her arms or legs. Patient states her symptoms have improved. Related Data Home Medications Medication Instructions Recorded Confirmed budesonide 160 mcg-glycopyr 9 2 inh inhalation DIRECTED 02/01/22 01/29/23 mcg-formot 4.8 mcg/actuation HFA inhaler ([employer]) Allergies Allergy/AdvReac Type Severity Reaction Status Date / Time Penicillins Allergy Mild rash Verified 01/19/23 13:48 Sulfa (Sulfonamide Allergy Rash Verified 01/19/23 13:48 Antibiotics) Review of Systems Review of Systems: All systems reviewed & are unremarkable except as noted in HPI and below PMFSH Past Medical History Medical History Benign reactive hypertension COPD (chronic obstructive pulmonary disease) Crossover toe deformity of right foot Knee arthropathy Mixed hyperlipidemia JOSE on CPAP Pulmonary HTN Surgical History Surgical History H/O total knee replacement S/P EVELIA (total abdominal hysterectomy) Total knee replacement status Family History Family History Mother Family history of kidney disease, Onset Age: 47 Patient's mother is Father Family history of kidney disease, Onset Age: 82 Patient's father is Sibling Patient's sister is Other Family history of chronic obstructive pulmonary disease Social History Social History Social History: Smoking packs per day: 0.5 Smoking cigarettes per day: 10.0 Years smoked: 30 Smoking pack-years: 15.00 Smoking status: Former smoker Second hand tobacco smoke exposure: No Alcohol intake: never Substance use: never Substance use type: does not use Lack of Transportation: No Lack of Food: Never True Current Housing: I Have Housing Concerned About Future Housing: No Difficulty Paying Gas/Electric Bills: No Difficulty Paying for Meds: No Currently Unemployed: YES Education: Decline to Answer Difficulty w/ Childcare or Family Care: No Living arrangements: with family Occupation/Education: retired Gender identity (if verbalized by the patient): Female Sexual Orientation (if Verbalized by the Patient): Straight or Heterosexual Spiritual care concerns: No Exam Narrative: APPEARANCE: Well appearing, no pain, no distress, well-nourished. HEAD: normocephalic, atraumatic. EYES: PERRLA/EOMI, conjunctivae clear. NOSE: Normal no drainage NECK: Supple. No adenopathy, no masses. RESPIRATORY: Airway patent, respirations nonlabored. Clear to auscultation bilaterally, no rales, rhonchi, wheezing. CARDIOVASCULAR: Regular rate and rhythm without murmurs rubs or gallops. ABDOMINAL: Soft, nontender, nondistended, normal bowel sounds MUSCULOSKELETAL: Moves all extremities. Strength/ROM intact, No edema, No calf tenderness. NEURO: Alert. Cranial nerves II through XII intact. Normal visual wyatt, no drift noticed coordination. Symptoms reproducible with flexion of the left wrist SKIN: Warm, dry. Normal Color PSYCHIATR
[2023-01-29 12:22] LABS: Alanine Aminotransferase 15 U/L (6-35); Albumin Level 3.7 g/dL (3.5-5.1); Alkaline Phosphatase 67 U/L (38-126); Anion Gap 2 mmol/L (8-16); Aspartate Amino Transferase 25 U/L (14-36); Bilirubin,Total 0.5 mg/dL (0.2-1.3); Blood Urea Nitrogen 11 mg/dL (7-17); Carbon Dioxide 33 mmol/L (22-30); Chloride 106 mmol/L (98-107); Estimated CRCL calculation 44 ml/min; Estimated Glomerular Filt Rate > 60; Glucose 91 mg/dL (65-110); Potassium 3.3 mmol/L (3.4-5.0); Sodium 141 mmol/L (137-145)
[2023-01-29 12:33] LABS: Estimated CRCL calculation 44 ml/min; Estimated Glomerular Filt Rate > 60
[2023-01-29] MEDS: ASPIRIN 81 MG CHEWABLE TABLET 324 MG PO (13:11)
[2023-01-29 13:21] LABS: Basophils Absolute Auto 0.1 K/mm3 (0.0-0.1); Basophils Percent Auto 0.7 % (0.2-1.2); Eosinophils Absolute Auto 0.2 K/mm3 (0-0.3); Eosinophils Percent Auto 2.6 % (0-4.4); Hematocrit 36.8 % (37.0-47.0); Hemoglobin 11.8 g/dL (12.0-15.0); Immature Granulocyte Absolute 0.03 K/mm3 (0.00-0.031); Immature Granulocyte Percent A 0.4 % (0-0.5); Lymphocytes Absolute Auto 3.03 K/mm3 (0.9-3.2); Mean Corpuscular HGB Conc 32.1 g/dl (32-36); Mean Corpuscular Hemoglobin 30.4 pg (26-34); Mean Corpuscular Volume 94.8 fl (80-100); Monocytes Absolute Auto 0.7 K/mm3 (0.1-0.6); Monocytes Percent Auto 10.2 % (2.6-8.5); Neutrophils Absolute Auto 3.2 K/mm3 (1.3-6.7); Neutrophils Percent Auto 44.1 % (45.5-73.1); Platelet Count Result 163 k/mm3 (150-375); Red Blood Count 3.88 M/mm3 (4.2-5.4); Red Cell Distribution Width 13.5 % (11.5-14.5); White Blood Count 7.2 K/mm3 (4.5-10.0)
--- NOTE | 2023-01-29 15:30 | ADMGEN ---
This patient, Jayro Arenas, was admitted to Medical Room 258-01 at 1530. Patient/family oriented to hospital policies and general routines including ID bracelet, bed and alarms, visiting hours, pain management, procedures, bathroom and other care routines, personal items, smoking policy, room service/diet, and visiting hours. Information on how to activate the Rapid Response Team has been discussed. Patient/Family are encouraged to report perceived risks to care and to ask questions if they do not understand what they are told or what they should do.
--- NOTE | 2023-01-29 16:58 | PM.IMHP ---
H&P: HPI History of Present Illness Date/Time: 01/29/23 16:58 Chief Complaint: left hand weakness and tingling Narrative: This is an 82-year-old female patient with a past history of COPD, sleep apnea, pulmonary hypertension, hyperlipidemia who presented to the Emergency department this morning complaining of not being able to use left hand and associated tingling. She reports that there was some pain associated with this radiating from the wrist to the elbow. Patient denied any neck pain or trauma. Patient does not recall when this started so last known normal would of been before bed last night. Patient has no history of prior stroke or cardiac disease. Patient denies any difficulty breathing chest pain nausea vomiting bowel or bladder problems. She reports that function her left hand has returned fully but there is still some paresthesia noted. Patient reports that she uses CPAP at night with 1 L of oxygen bleed in but she did not bring her own machine. Review of Systems Review of Systems: All systems reviewed & are unremarkable except as noted in HPI and below PMFSH Past Medical History Medical History Benign reactive hypertension COPD (chronic obstructive pulmonary disease) Crossover toe deformity of right foot Knee arthropathy Mixed hyperlipidemia JOSE on CPAP Pulmonary HTN Surgical History Surgical History H/O total knee replacement S/P EVELIA (total abdominal hysterectomy) Total knee replacement status Family History Family History Mother Family history of kidney disease, Onset Age: 47 Patient's mother is Father Family history of kidney disease, Onset Age: 82 Patient's father is Sibling Patient's sister is Other Family history of chronic obstructive pulmonary disease Social History Social History Social History: Smoking packs per day: 0.5 Smoking cigarettes per day: 10.0 Years smoked: 30 Smoking pack-years: 15.00 Smoking status: Former smoker Second hand tobacco smoke exposure: No Alcohol intake: never Substance use: never Substance use type: does not use Lack of Transportation: No Lack of Food: Never True Current Housing: I Have Housing Concerned About Future Housing: No Difficulty Paying Gas/Electric Bills: No Difficulty Paying for Meds: No Currently Unemployed: YES Education: Decline to Answer Difficulty w/ Childcare or Family Care: No Living arrangements: with family Occupation/Education: retired Gender identity (if verbalized by the patient): Female Sexual Orientation (if Verbalized by the Patient): Straight or Heterosexual Spiritual care concerns: No Meds Home Medications and Allergies Home Medications Medication Instructions Recorded Confirmed Type budesonide 160 mcg-glycopyr 9 2 inh inhalation DIRECTED 02/01/22 01/29/23 History mcg-formot 4.8 mcg/actuation HFA inhaler ([employer]) fluticasone propionate 50 1 spray intranasal DAILY #16 grams 03/22/22 01/29/23 Rx mcg/actuation nasal spray,suspension atorvastatin 10 mg tablet 10 mg PO DAILY #90 tabs 01/07/23 01/29/23 Rx carvedilol 12.5 mg tablet See Rx Instructions .Route 01/07/23 01/29/23 Rx .COMPLEX #180 tabs famotidine 40 mg tablet See Rx Instructions .Route 01/07/23 01/29/23 Rx .COMPLEX #90 tabs hydrochlorothiazide 12.5 mg tablet See Rx Instructions .Route 01/07/23 01/29/23 Rx .COMPLEX #90 tabs Allergies Allergy/AdvReac Type Severity Reaction Status Date / Time Penicillins Allergy Mild rash Verified 01/19/23 13:48 Sulfa (Sulfonamide Allergy Rash Verified 01/19/23 13:48 Antibiotics) Vital Signs Vital Signs - 24 hr 01/29/23 11:
[2023-01-29] MEDS: ATORVASTATIN 40 MG TABLET PO (17:58)
[2023-01-29] MEDS: POTASSIUM CHLORIDE 20 MEQ ER TABLET 40 MEQ PO (18:14)
[2023-01-29] MEDS: carvediloL 12.5 MG TABLET PO (20:24)
[2023-01-30] VITALS (12 sets, daily range): BP systolic 110–134; BP diastolic 44–61; PULSE 71–93; RESP 12–21; TEMP 36.8–36.9; O2SAT 97–98
[2023-01-30 05:53] LABS: Hematocrit 35.5 % (37.0-47.0); Hemoglobin 11.8 g/dL (12.0-15.0); Mean Corpuscular HGB Conc 33.2 g/dl (32-36); Mean Corpuscular Hemoglobin 30.9 pg (26-34); Mean Corpuscular Volume 92.9 fl (80-100); Mean Platelet Volume 9.5 fl (7.4-10.4); Platelet Count Result 209 k/mm3 (150-375); Red Blood Count 3.82 M/mm3 (4.2-5.4); Red Cell Distribution Width 13.4 % (11.5-14.5)
[2023-01-30 06:05] LABS: Anion Gap 2 mmol/L (8-16); Blood Urea Nitrogen 13 mg/dL (7-17); Calcium 8.8 mg/dL (8.4-10.2); Carbon Dioxide 31 mmol/L (22-30); Chloride 108 mmol/L (98-107); Cholesterol 155 mg/dL (0-200); Estimated CRCL calculation 45 ml/min; Estimated Glomerular Filt Rate > 60; Glucose 102 mg/dL (65-110); HDL Direct 62 mg/dL; Potassium 3.6 mmol/L (3.4-5.0); Sodium 141 mmol/L (137-145); Triglycerides 81 mg/dL (<150)
[2023-01-30 06:15] LABS: LDL Cholesterol Direct 66 mg/dL
[2023-01-30] MEDS: carvediloL 12.5 MG TABLET PO ×2 (08:33→20:15)
[2023-01-30] MEDS: ASPIRIN 81 MG CHEWABLE TABLET PO (08:33)
[2023-01-30] MEDS: hydroCHLOROthiazide 12.5 MG CAPSULE BY MOUTH (08:33)
[2023-01-30] MEDS: ENOXAPARIN 40 MG/0.4 ML SYRINGE SUB-Q (08:33)
[2023-01-30] MEDS: FAMOTIDINE 20 MG TABLET 40 MG BY MOUTH (08:33)
[2023-01-30] MEDS: FLUTICASONE/UMECLIDIN/VILANTER 100-62.5-25 MCG ELLIPTA 1 PUFF INHALATION (08:34)
--- NOTE | 2023-01-30 11:27 | PM.IMPN ---
Progress Note: A&P Assessment and Plan (1) Left hand weakness: Code(s): R29.898 - Other symptoms and signs involving the musculoskeletal system Status: Acute Assessment and Plan: Weakness resolved, residual paresthesia reported. CTA negative, patient admitted for MRI Brain and Neurology consult, concern for TIA/Stroke. Appreciate Neurology recommendations. Continue with Aspirin (2) COPD (chronic obstructive pulmonary disease): Code(s): J44.9 - Chronic obstructive pulmonary disease, unspecified Status: Acute Assessment and Plan: Stable, no acute exacerbation (3) JOSE on CPAP: Code(s): G47.33 - Obstructive sleep apnea (adult) (pediatric); Z99.89 - Dependence on other enabling machines and devices Status: Acute Assessment and Plan: AutoPap with 1 liter/minute oxygen bleed in as per home use (4) Mixed hyperlipidemia: Code(s): E78.2 - Mixed hyperlipidemia Status: Acute Assessment and Plan: Patient is usually on a atorvastatin 10 mg, increase dose to 40 mg due to TIA/stroke workup. Can resume 10 mg if TIA/stroke is ruled out. (5) Benign reactive hypertension: Code(s): I10 - Essential (primary) hypertension Status: Acute Assessment and Plan: Stable, blood pressure reviewed on 01/29. Resume home medications. Plan admit to [facility] resume home medications MRI ordered neurology consulted, appreciate recommendations auto PAP with 1 liter/minute bleed in at night Subjective Date/time seen: 01/30/23 11:27 Patient was seen during the morning rounds today. Slight weakness of left hand and arm. No sob or chest pain. No abdominal pain or nausea. Mood stable. Review of Systems Review of Systems: All systems reviewed & are unremarkable except as noted in HPI and below Exam Narrative: GENERAL: Generally well appearing, alert and oriented, in no apparent distress. She is pleasant and conversant in full sentences. HEENT: Pupils are equally round and briskly reactive to light. Extraocular muscles are intact. Oral mucous membranes are moist without lesions. NECK: The patient has no noted JVD. No adenopathy is appreciated. CHEST/LUNGS: Lungs are clear bilaterally without rhonchi, rales, or wheezes. There is no subcutaneous air appreciated. There is no tenderness to the chest wall. HEART: The patient has a regular rate and rhythm. No murmurs, rubs, or gallops are appreciated. Distal pulses are 2+. No carotid bruits appreciated. ABDOMEN: The patient's abdomen is soft, nontender, and nondistended. Bowel sounds are positive. No organomegaly is appreciated. No masses are appreciated. There are no peritoneal signs. There is no Brantley's sign. EXTREMITIES: The patient has no peripheral edema. There is no focal long bone tenderness or deformity. SKIN: The patient's skin is warm and dry, without rashes or lesions. PSYCHIATRIC: The patient has normal mental status and has an appropriate affect. NEUROLOGIC: There are no gross deficits to the cranial nerves. Patient ambulates with steady gait. Mild paresthesia left forearm no other focal deficits Objective Data Vital Signs Vital Signs: Vital Signs - 24 hr 01/29/23 11:30 01/29/23 11:45 01/29/23 12:05 Temperature Pulse Rate 81 79 82 Respiratory Rate 18 18 18 Blood Pressure Pulse Oximetry 100 100 99 Oxygen Delivery 01/29/23 12:15 01/29/23 12:40 01/29/23 12:45 Temperature Pulse Rate 78 82 83 Respiratory Rate 24 H 16 21 H Blood Pressure Pulse Oximetry 100 Oxygen Delivery 01/29/23 13:07 01/29/23 13:16 01/29/23 13:30 Temperature Pulse Rate 79 84 80 Respiratory Rate 19 20 15 Blood Pressure Pulse Oximetry 97 100 100 Oxygen Delivery 01/29/23 13:33 01/29/23 14:32 01/29/23 14:34 Temperature Pulse Rate 79 71 Respiratory Rate 12 14 Blood Pressure 134/57 L 145/70 H Pulse Oximetry 100 100 100 Oxygen Delivery 01/29/23 14:45 01/29/23 15:
--- NOTE | 2023-01-30 13:21 | WPDNEURCNPN ---
Assessment and Plan Assessment and plan (1) Left hand weakness: Code(s): R29.898 - Other symptoms and signs involving the musculoskeletal system Status: Acute Plan 1 TIA but also documented abnormal MRI the it could be related to small stroke. 2. Considering the abnormality on MRI she will need the surface echocardiogram the CT scan of the head and neck has already been done, and she is taking atorvastatin 10 mg daily will add aspirin 81 mg daily. Consult date: 01/30/23 HPI: Jayro Arenas is a 82 year old female Admitted to the hospital through the emergency room for the complaints of tingling in left hand along with the discoordination and stiffness without associated involvement of the left lower extremity or vision. she also gave no history of weakness or numbness of the lower extremities. She has been taking only medications for the breathing difficulties, she is allergic to penicillin and sulfa, as she has documented history of 1. COPD 2. Mixed hyperlipidemia 3. Pulmonary hypertension. she has also undergone total knee replacement, she has history of years smoked 30 with smoking pack years 15 but at present former smoker, and never alcohol intake, initial exam in the emergency room was neurologically nonfocal, considering her symptomatology with the possibility of compressive neuropathy versus the TIA she was admitted to the hospital and the CTA of the head and neck was negative, her vital signs were normal, routine lab with no abnormalities and GFR of more than 60, as mentioned CTA of the head and neck was negative EKG was without atrial fibrillation , this morning MRI of the brain revealed small focal acute subacute right parietal lobe infarction without significant mass effect, PMFSH Past Medical History Medical History Benign reactive hypertension COPD (chronic obstructive pulmonary disease) Crossover toe deformity of right foot Knee arthropathy Mixed hyperlipidemia JOSE on CPAP Pulmonary HTN Surgical History Surgical History H/O total knee replacement S/P EVELIA (total abdominal hysterectomy) Total knee replacement status Family History Family History Mother Family history of kidney disease, Onset Age: 47 Patient's mother is Father Family history of kidney disease, Onset Age: 82 Patient's father is Sibling Patient's sister is Other Family history of chronic obstructive pulmonary disease Social History Social History Social History: Smoking packs per day: 0.5 Smoking cigarettes per day: 10.0 Years smoked: 30 Smoking pack-years: 15.00 Smoking status: Former smoker Second hand tobacco smoke exposure: No Alcohol intake: never Substance use: never Substance use type: does not use Lack of Transportation: No Lack of Food: Never True Current Housing: I Have Housing Concerned About Future Housing: No Difficulty Paying Gas/Electric Bills: No Difficulty Paying for Meds: No Currently Unemployed: YES Education: Decline to Answer Difficulty w/ Childcare or Family Care: No Living arrangements: with family Occupation/Education: retired Gender identity (if verbalized by the patient): Female Sexual Orientation (if Verbalized by the Patient): Straight or Heterosexual Spiritual care concerns: No Meds Home Medications and Allergies Home Medications Medication Instructions Recorded Confirmed Type budesonide 160 mcg-glycopyr 9 2 inh inhalation DIRECTED 02/01/22 01/29/23 History mcg-formot 4.8 mcg/actuation HFA inhaler (Breztri Aerosphere) fluticasone propionate 50 1 spray intranasal DAILY #16 grams 03/22/22 01/29/23 Rx mcg/actuation nasal spray,suspension atorvastatin 10
[2023-01-30] MEDS: ATORVASTATIN 40 MG TABLET PO (17:05)
[2023-01-31] VITALS (10 sets, daily range): BP systolic 114–145; BP diastolic 60–68; PULSE 63–87; RESP 14–21; TEMP 36.2–36.4; O2SAT 92–100
--- NOTE | 2023-01-31 | ECHO_ITS ---
Patient Info Name: Jayro Arenas Age: 82 years : 1940 Gender: Female Ht: 64 in Wt: 189 lbs BSA: 2.00 m2 HR: 87 bpm BP: 114 / 60 mmHg Technical Quality: Fair Exam Date: 01/31/2023 9:27 AM Exam Location: [facility] Room: 258 Patient Status: Inpatient Admit Date: 01/29/2023 Staff Ordering Physician: Efrain Clemente MD [employer] Loan Underwriter: Natalia Mixon RDCS Attending Provider: Michael Newman MD Exam Type: CA echo doppler w bubble study Study Info Indications - TIA R/O CSE Complete two-dimensional, color flow and Doppler transthoracic echocardiogram is performed with agitated saline. Contrast/Agitated Saline Contrast/Ag. Saline: Agitated Saline Amount: 20.00 ml Existing IV Access: Yes IV Access Condition: patent with no signs of infiltration Summary 1. Left ventricular chamber dimension is normal. 2. Left ventricular systolic function is hyperdynamic, estimated at >70%. 3. The left ventricular diastolic function is grade I diastolic dysfunction. 4. E/e' 14 is mildly elevated. 5. Agitated saline injection with and without valsalva maneuver opacified right side cardiac chambers and bubbles shunted to left side cardiac chambers suggestive of patent foramen ovale. 6. There is mild aortic valve sclerosis. 7. The mitral valve has moderately calcified annulus. 8. There is trace tricuspid valve regurgitation. 9. No pulmonary hypertension, estimated pulmonary arterial systolic pressure is 35 mmHg. Left Ventricle E/e' 14 is mildly elevated. Left ventricular chamber dimension is normal. Left ventricular systolic function is hyperdynamic, estimated at >70%. The left ventricular diastolic function is grade I diastolic dysfunction. Right Ventricle Right ventricular chamber dimension is normal. Right ventricular systolic function is normal. Left Atria Left atrial chamber dimension is normal. Right Atria Right atrial chamber dimension is normal. Atrial Septum Agitated saline injection with and without valsalva maneuver opacified right side cardiac chambers and bubbles shunted to left side cardiac chambers suggestive of patent foramen ovale. Suspected patent foramen ovale visualized by 2D, color flow and agitated saline imaging. Aortic Valve The aortic valve is trileaflet. There is mild aortic valve sclerosis. There is no aortic valve stenosis. There is no aortic valve regurgitation. Pulmonic Valve There is no pulmonic regurgitation. Mitral Valve The mitral valve has moderately calcified annulus. There is no mitral valve stenosis. There is no mitral valve regurgitation. Tricuspid Valve There is trace tricuspid valve regurgitation. No pulmonary hypertension, estimated pulmonary arterial systolic pressure is 35 mmHg. Pericardium/Pleural There is no pericardial effusion. Inferior Vena Cava Normal inferior vena cava with >50% collapse upon inspiration consistent with normal right atrial pressure, 5 mmHg. Aorta The aortic root size at the sinus of Valsalva is normal. Left Ventricular Outflow Tract Name Value Normal LVOT 2D LVOT Diameter 2.0 cm LVOT Doppler LVOT Peak Gradient 5 mmHg LVOT Mean Gradi
[2023-01-31 05:45] LABS: Hemoglobin 11.9 g/dL (12.0-15.0); Mean Corpuscular HGB Conc 33.1 g/dl (32-36); Mean Corpuscular Hemoglobin 30.7 pg (26-34); Mean Corpuscular Volume 92.8 fl (80-100); Mean Platelet Volume 9.6 fl (7.4-10.4); Platelet Count Result 206 k/mm3 (150-375); Red Blood Count 3.88 M/mm3 (4.2-5.4); Red Cell Distribution Width 13.3 % (11.5-14.5); White Blood Count 8.1 K/mm3 (4.5-10.0)
[2023-01-31 05:57] LABS: Anion Gap 3 mmol/L (8-16); Blood Urea Nitrogen 16 mg/dL (7-17); Calcium 8.8 mg/dL (8.4-10.2); Carbon Dioxide 31 mmol/L (22-30); Chloride 105 mmol/L (98-107); Estimated CRCL calculation 45 ml/min; Estimated Glomerular Filt Rate > 60; Glucose 94 mg/dL (65-110); Potassium 3.4 mmol/L (3.4-5.0); Sodium 139 mmol/L (137-145)
[2023-01-31] MEDS: FLUTICASONE/UMECLIDIN/VILANTER 100-62.5-25 MCG ELLIPTA 1 PUFF INHALATION (08:04)
[2023-01-31] MEDS: ASPIRIN 81 MG CHEWABLE TABLET PO (08:37)
[2023-01-31] MEDS: hydroCHLOROthiazide 12.5 MG CAPSULE BY MOUTH (08:37)
[2023-01-31] MEDS: FAMOTIDINE 20 MG TABLET 40 MG BY MOUTH (08:37)
[2023-01-31] MEDS: FLUTICASONE PROPIONATE 0.05% NA SPR 16 GM BTL (*BKC) 1 SPRAY NASAL (08:46)
[2023-01-31] MEDS: ENOXAPARIN 40 MG/0.4 ML SYRINGE SUB-Q (08:46)
[2023-01-31] MEDS: carvediloL 12.5 MG TABLET PO (08:46)
--- NOTE | 2023-01-31 15:45 | PM.CNCAR ---
Assessment and Plan Assessment and plan (1) Patent foramen ovale: Code(s): Q21.12 - Patent foramen ovale Status: Acute Plan this is an 82-year-old lady who has a very small ischemic stroke in the right parietal region with possible etiology being a patent foramen ovale. She has no other cardiovascular complaints. There are some mild sclerotic changes on her aortic valve that are unrelated to any of this and in this setting I am seeing her in consultation. I would generally opt for anticoagulation treatment in this situation rather than mechanical PFO closure at age 82. I would defer starting anticoagulation until neurology wine consultant renders an opinion as to the timing of this so as to avoid the risk of hemorrhagic transformation. I discussed with her the anticoagulant options. She does not wish to take warfarin because of the cumbersome monitoring of her INR. It would be her preference to take Xarelto which I told her is an excellent choice. It is reasonable for her PCP to start this after discharge. The patient is expecting to be discharged later this afternoon. If the only recommendation is to start systemic anticoagulation this is something the PCP can certainly handle without the need for follow-up in my office Michael Alves MD [facility] History of Present Illness History of Present Illness Consult date/time: 01/31/23 15:45 Reason For Visit: cva,left hand weakness Narrative: This is a very pleasant 82-year-old lady I am seeing this afternoon at the request of the hospitalist because of a patent foramen ovale. She is not known to have any cardiac problems before this hospitalization. She was admitted to the hospital over the weekend with some symptoms of paresthesias and tingling in the left arm and hand that were transient and self-limited. She had no symptoms in the left lower extremity or any other neurological symptoms. She was admitted for a TIA/CVA workup. A CT scan was essentially unremarkable and MRI of brain apparently demonstrated a small right parietal infarct. She was seen by Neurology consultation who requested an echo with bubble study. That exam was done earlier today and interpreted by Dr. Howell. I have personally reviewed the scans myself as well. She appears to have a somewhat redundant appearing / aneurysmal atrial septum with a bubble study that confirms the presence of shunt at this level most consistent with the presence of a patent foramen ovale. There is no visible discontinuity of the septum. The right side of the heart is not enlarged or dilated. Her exam shows modest sclerosis of the aortic valve and some mitral annular calcium her left ventricular function is vigorous and she is in sinus rhythm. There is no mitral valve dysfunction. Twelve lead electrocardiogram is unremarkable. She does have hypertension and dyslipidemia. Review of Systems Constitutional: Constitutional: Reports no additional constitutional complaints Eyes: Eyes: Reports no additional eye complaints ENT: Reports system reviewed and no additional complaints, except as documented Cardiovascular: Cardiovascular: Reports no additional cardiovascular complaints Respiratory: Respiratory: Reports dyspnea on exertion Gastrointestinal: Gastrointestinal: Reports no additional gastrointestinal complaints Musculoskeletal: Musculoskeletal: Reports as per HPI Integumentary/Breasts: Skin/Breast: Reports system reviewed and no additional complaints, except as docu Neurologic: Reports as per HPI Endocrine: Endocrine: Reports no additional endocrine complaints Hematologic/Lymphatic: Hematologic/Lymphatic: Reports no additional hematologic/lymphatic complaints Allergic/Immunologic: Allergic/Immunologic: Reports no additional allergic/immunologic complaints [facility] Past Medical History Medical History Benign reactive hypertension COPD (chronic obstructive pulmonary d
--- NOTE | 2023-01-31 15:55 | PM.DS ---
DS: Admitting Diagnosis Discharge Date 01/31/2023 Admitting Diagnosis left hand weakness, COPD, JOSE on CPAP, mixed hyperlipidemia, benign reactive hypertension DS: Discharge Diagnosis Discharge Diagnosis (1) Infarction of parietal lobe: Code(s): I63.89 - Other cerebral infarction Status: Acute (2) Ischemic stroke: Code(s): I63.9 - Cerebral infarction, unspecified Status: Acute (3) Patent foramen ovale: Code(s): Q21.12 - Patent foramen ovale Status: Acute (4) Left hand weakness: Code(s): R29.898 - Other symptoms and signs involving the musculoskeletal system Status: Acute (5) COPD (chronic obstructive pulmonary disease): Code(s): J44.9 - Chronic obstructive pulmonary disease, unspecified Status: Acute (6) JOSE on CPAP: Code(s): G47.33 - Obstructive sleep apnea (adult) (pediatric); Z99.89 - Dependence on other enabling machines and devices Status: Acute (7) Mixed hyperlipidemia: Code(s): E78.2 - Mixed hyperlipidemia Status: Acute (8) Benign reactive hypertension: Code(s): I10 - Essential (primary) hypertension Status: Acute DS: Summary Hospital Course Reason for hospitalization: patient was admitted for left hand weakness and numbness for stroke rule out Hospital Course: Initially was thought that patient might have a compressive neuropathy of the left wrist. She underwent evaluation for stroke including CTA of the head neck and brain. MRI shows an acute parietal infarction. Patient received treatment with aspirin and escalation of statin therapy. She has regained full motor and most sensory of left hand. Today patient had echocardiogram which shows patent foramen ovale. Discussed results with Neurology who recommended Cardiology consult. Cardiology saw patient and recommended anticoagulation after acute stroke recovery process. Primary care follow-up recommended and Xarelto recommended as anticoagulant of choice. Patient would likely tolerate this better than PFO closure. Prescription for 81 mg aspirin and escalated statin therapy written. Patient discharged in stable condition. Status at Discharge Cognitive/behavioral status at discharge: Awake alert oriented pleasant Functional status at discharge: independent ambulation Overall status at discharge: patient is progressing back to baseline Time Spent with Patient Time attestation: Total time spent providing and/or coordinating discharge services: 40 minutes Time spent: Greater than 30 minutes Exam Narrative: GENERAL: Generally well appearing, alert and oriented, in no apparent distress. She is pleasant and conversant in full sentences. HEENT: Pupils are equally round and briskly reactive to light. Extraocular muscles are intact. Oral mucous membranes are moist without lesions. NECK: The patient has no noted JVD. No adenopathy is appreciated. CHEST/LUNGS: Lungs are clear bilaterally without rhonchi, rales, or wheezes. There is no subcutaneous air appreciated. There is no tenderness to the chest wall. HEART: The patient has a regular rate and rhythm. No murmurs, rubs, or gallops are appreciated. Distal pulses are 2+. No carotid bruits appreciated. ABDOMEN: The patient's abdomen is soft, nontender, and nondistended. Bowel sounds are positive. No organomegaly is appreciated. No masses are appreciated. There are no peritoneal signs. There is no Brantley's sign. EXTREMITIES: The patient has no peripheral edema. There is no focal long bone tenderness or deformity. SKIN: The patient's skin is warm and dry, without rashes or lesions. PSYCHIATRIC: The patient has normal mental status and has an appropriate affect. NEUROLOGIC: There are no gross deficits to the cranial nerves. Patient ambulates with steady gait. Mild paresthesia left forearm/hand with full function motor, no other focal deficits DS: Data Data Completed and Pending Completed studies during hospitalization:
[2023-01-31] MEDS: ATORVASTATIN 40 MG TABLET PO (17:42)
== END 2023-01-31 17:49 | disposition home or self-care (01) ==
LOC: ANHED 11:30 → ANH2MED 14:53
PROVIDERS: Nurse Practitioner; Admitting Provider Chiropractor; Emergency Provider Emergency Medicine; PCP Family Medicine; Visit Provider Chiropractor
DX: I63.89 Other cerebral infarction (principal); Q21.12 Patent foramen ovale; R29.898 Other symptoms and signs involving the musculoskeletal system; J44.9 Chronic obstructive pulmonary disease, unspecified; I10 Essential (primary) hypertension; E78.2 Mixed hyperlipidemia; G47.33 Obstructive sleep apnea (adult) (pediatric); I27.20 Pulmonary hypertension, unspecified; Z87.891 Personal history of nicotine dependence; Z79.51 Long term (current) use of inhaled steroids; Z23 Encounter for immunization; R29.700 NIHSS score 0
CPT/HCPCS: 36415; 70496; 70498; 70553; 80048; 80053; 80061; 85025; 85027; 85610; 85730; 90471; 90694; 93005; 93306; 94640; 96372; 96375; 99285; A9270; A9577; G0008; G0378; J1650; Q9967

== ENCOUNTER 2023-05-12 16:31 | Emergency (ER) | payer MEDICARE, SELFPAY ==
[2023-05-12 16:55] VITALS: BP 142/65; PULSE 107; RESP 20; TEMP 37.7; O2SAT 97
[2023-05-12 16:57] VITALS: BP 142/65; PULSE 107; RESP 20; TEMP 37.7; O2SAT 97
--- NOTE | 2023-05-12 17:22 | ED.URI ---
HPI - URI/Sore Throat General Chief Complaint: Upper Respiratory Infection Stated Complaint: feeling bad , cold Time Seen by Provider: 05/12/23 17:22 Source: patient Mode of arrival: ambulatory Limitations: no limitations History of Present Illness HPI Narrative: 82-year-old female presents with complaint of cough, nasal congestion, fatigue, decreased appetite, low-grade fever for 2 days. Not taking any buwx-[id number] medications to treat symptoms. No chest pain or shortness of breath. Patient reports that she did get her flu vaccine in the fall. All systems reviewed and negative except as noted above. Related Data Home Medications Medication Instructions Recorded Confirmed budesonide 160 mcg-glycopyr 9 2 inh inhalation DIRECTED 02/01/22 05/12/23 mcg-formot 4.8 mcg/actuation HFA inhaler (Breztri Aerosphere) cholecalciferol (vitamin D3) 125 125 mcg PO DAILY 02/08/23 05/12/23 mcg (5,000 unit) capsule Allergies Allergy/AdvReac Type Severity Reaction Status Date / Time Penicillins Allergy Mild rash Verified 05/12/23 16:53 Sulfa (Sulfonamide Allergy Mild Rash Verified 05/12/23 16:53 Antibiotics) Review of Systems Review of Systems: CONSTITUTIONAL: Denies fever, chills, or sweats. Reports fatigue and decreased appetite. EYES: Denies visual changes, redness, or discharge. ENT: Reports rhinorrhea, congestion. Denies sore throat, or otalgia. CARDIOVASCULAR: Denies chest pain, palpitations, or edema. RESPIRATORY: reports cough. denies dyspnea. GASTROINTESTINAL: Denies abdominal pain, nausea, vomiting, or diarrhea. GENITOURINARY: Denies dysuria or hematuria. SKIN: Denies rash or itching. MUSCULOSKELETAL: Denies back pain, joint pain, or myalgia. NEUROLOGIC: Denies headache, numbness, or weakness. PSYCHIATRIC: Denies anxiety or depression. All other systems reviewed are negative, except as documented in HPI. [facility] Past Medical History Medical History Benign reactive hypertension COPD (chronic obstructive pulmonary disease) Crossover toe deformity of right foot Knee arthropathy Mixed hyperlipidemia JOSE on CPAP Pulmonary HTN Surgical History Surgical History H/O total knee replacement S/P EVELIA (total abdominal hysterectomy) Total knee replacement status Family History Family History Mother Family history of kidney disease, Onset Age: 47 Patient's mother is Father Family history of kidney disease, Onset Age: 82 Patient's father is Sibling Patient's sister is Other Family history of chronic obstructive pulmonary disease Social History Social History Social History: Smoking packs per day: 0.5 Smoking cigarettes per day: 10.0 Years smoked: 30 Smoking pack-years: 15.00 Smoking status: Former smoker Second hand tobacco smoke exposure: No Alcohol intake: never Substance use: never Substance use type: does not use Lack of Transportation: No Lack of Food: Never True Current Housing: I Have Housing Concerned About Future Housing: No Difficulty Paying Gas/Electric Bills: No Difficulty Paying for Meds: No Currently Unemployed: YES Education: Decline to Answer Difficulty w/ Childcare or Family Care: No Living arrangements: with family Occupation/Education: retired Gender identity (if verbalized by the patient): Female Sexual Orientation (if Verbalized by the Patient): Straight or Heterosexual Spiritual care concerns: No Comments At time of signature, agree with nursing past medical, surgical, social and family history. There is no relevant family history pertinent to the presenting complaint. Exam Narrative: GENERAL: This is a well-nourished, well
== END 2023-05-12 17:39 | disposition home or self-care (01) ==
PROVIDERS: Emergency Provider Nurse Practitioner Family; PCP Family Medicine
DX: J10.1 Influenza due to other identified influenza virus with other respiratory manifestations (principal); Z20.822 Contact with and (suspected) exposure to COVID-19; Z87.891 Personal history of nicotine dependence; I10 Essential (primary) hypertension; J44.9 Chronic obstructive pulmonary disease, unspecified; E78.2 Mixed hyperlipidemia; G47.33 Obstructive sleep apnea (adult) (pediatric); I27.20 Pulmonary hypertension, unspecified
CPT/HCPCS: 87426; 87804; 99213; C9803; G0463

== ENCOUNTER 2023-05-13 10:37 | Emergency (ER) | payer MEDICARE, SELFPAY ==
[2023-05-13 11:49] VITALS: BP 96/46; PULSE 83; RESP 16; TEMP 36.8; O2SAT 93
--- NOTE | 2023-05-13 11:54 | ECG_ITS ---
Measurements Intervals Ethel Rate: 83 P: 73 CO: 139 QRS: 33 QRSD: 76 T: 45 QT: 362 QTc: 426 Interpretive Statements SINUS RHYTHM VENTRICULAR PREMATURE COMPLEX BASELINE WANDER- V4-V5 BORDERLINE ECG COMPARED TO ECG 01/29/2023 11:38:08 NO SIGNIFICANT CHANGES Electronically Signed On 05-13-2023 12:40:13 IDENTIFICATION AND RECORDS COMMANDER by Carlo oHwell D.O.
--- NOTE | 2023-05-13 12:34 | ED.ALLEREA ---
HPI - Allergic Reaction General Chief complaint: Allergic Reaction Stated complaint: med rxn/? face swelling Time Seen by Provider: 05/13/23 12:03 History of Present Illness HPI narrative: Patient is an 82-year-old female presenting with concerns for medication reaction. Patient states that she was diagnosed with influenza yesterday. She was started on Tamiflu and this morning she woke up and noticed that the area around her left eye was swollen. She called her PCP who told her to come to the ER. States that the swelling has come down on its own. It is very minimally swollen now. She denies lip or tongue swelling, voice changes, shortness of breath, nausea or vomiting. No rashes or swelling elsewhere. States she has been feeling intermittently lightheaded. Related Data Home Medications Medication Instructions Recorded Confirmed budesonide 160 mcg-glycopyr 9 2 inh inhalation DIRECTED 02/01/22 05/12/23 mcg-formot 4.8 mcg/actuation HFA inhaler (Breztri Aerosphere) cholecalciferol (vitamin D3) 125 125 mcg PO DAILY 02/08/23 05/12/23 mcg (5,000 unit) capsule Allergies Allergy/AdvReac Type Severity Reaction Status Date / Time Penicillins Allergy Mild rash Verified 05/13/23 12:03 Sulfa (Sulfonamide Allergy Mild Rash Verified 05/13/23 12:03 Antibiotics) Review of Systems Review of Systems: All systems reviewed & are unremarkable except as noted in HPI and below PMFSH Past Medical History Medical History Benign reactive hypertension COPD (chronic obstructive pulmonary disease) Crossover toe deformity of right foot Knee arthropathy Mixed hyperlipidemia JOSE on CPAP Pulmonary HTN Surgical History Surgical History H/O total knee replacement S/P EVELIA (total abdominal hysterectomy) Total knee replacement status Family History Family History Mother Family history of kidney disease, Onset Age: 47 Patient's mother is Father Family history of kidney disease, Onset Age: 82 Patient's father is Sibling Patient's sister is Other Family history of chronic obstructive pulmonary disease Social History Social History Social History: Smoking packs per day: 0.5 Smoking cigarettes per day: 10.0 Years smoked: 30 Smoking pack-years: 15.00 Smoking status: Former smoker Second hand tobacco smoke exposure: No Alcohol intake: never Substance use: never Substance use type: does not use Lack of Transportation: No Lack of Food: Never True Current Housing: I Have Housing Concerned About Future Housing: No Difficulty Paying Gas/Electric Bills: No Difficulty Paying for Meds: No Currently Unemployed: YES Education: Decline to Answer Difficulty w/ Childcare or Family Care: No Living arrangements: with family Occupation/Education: retired Gender identity (if verbalized by the patient): Female Sexual Orientation (if Verbalized by the Patient): Straight or Heterosexual Spiritual care concerns: No Exam Narrative: GENERAL: Well-appearing, no acute distress, pleasant cooperative HEAD: Normocephalic, atraumatic. EYES: PERRLA and EOMI. very mild periorbital swelling on the left, normal conjunctiva ENT: Mucous membranes moist. no swelling NECK: Supple. CHEST: Clear to auscultation. No respiratory distress. HEART: Regular rate and rhythm EXTREMITIES: Normal range of motion. SKIN: Warm, dry, no rash. NEURO: Alert and oriented x3. PSYCH: Normal mood and affect. Course Vital Signs Vital signs: Vital Signs Temperature 98.2 F 05/13/23 11:49 Pulse Rate 83 05/13/23 11:49 Respiratory Rate 16 05/13/23 11:49 Blood Pressure 96/46 L 05/13/23 11:49 Pulse
[2023-05-13] MEDS: diphenhydrAMINE HCl CAP 25 MG CAPSULE PO (12:47)
[2023-05-13] MEDS: FAMOTIDINE 20 MG TABLET PO (12:47)
== END 2023-05-13 12:51 | disposition home or self-care (01) ==
PROVIDERS: Emergency Provider Emergency Medicine; PCP Family Medicine
DX: R22.0 Localized swelling, mass and lump, head (principal); T37.5X5A Adverse effect of antiviral drugs, initial encounter; J44.9 Chronic obstructive pulmonary disease, unspecified; E78.2 Mixed hyperlipidemia; I27.20 Pulmonary hypertension, unspecified; G47.33 Obstructive sleep apnea (adult) (pediatric); Z96.659 Presence of unspecified artificial knee joint; Z90.710 Acquired absence of both cervix and uterus; Z87.891 Personal history of nicotine dependence; I49.3 Ventricular premature depolarization
CPT/HCPCS: 93005; 99283; A9270

== ENCOUNTER 2023-06-07 10:42 | Outpatient (CLI) | payer MEDICARE, SELFPAY ==
--- NOTE | ~2023-06-07 | MMUS_ITS ---
EXAMINATION: MM diagnostic jamel BI w naomy, US breast LT complete HISTORY: Left nipple discharge TECHNIQUE: Additional 3-D tomosynthesis images of the breasts were performed and synthetic 2-D images were generated. CAD analysis was submitted and interpreted. High resolution complete left breast ult rasound was performed. COMPARISON: Comparison to multiple prior studies sequentially, with oldest reviewed study dated 01/2019. BREAST PARENCHYMAL COMPOSITION: The breasts are heterogeneously dense, which may obscure small masses FINDINGS: MAMMOGRAPHIC FINDINGS: The breasts are stable. Coarse bilateral breast calcifications are unchanged. No new masses or socorro ectural distortion. ULTRASOUND: Complete US of all 4 quadrants of the left breast and retroareolar region was reviewed. At 4:00, 3 cm from the nipple there is 2 mm cyst. At 6:00 in the subareolar location there is mildly prominent alex t. At 11:00, 5 cm from the nipple there is echogenic focus with posterior shadowing, consistent with calcification, corresponding to calcifications seen on mammography. No suspicious sonographic abnorma lities to suggest malignancy. IMPRESSION: 1. No evidence for malignancy in either breast. 2. Routine yearly screening mammogram and regular clinical breast examination are recommended. BI-RADS Category 2: Benign finding(s). Reviewed, dictated and finalized at location A. GRAPHER IMPRESSION: 1. No evidence for malignancy in either breast. 2. Routine yearly screening mammogram and regular clinical breast examination a re recommended. BI-RADS Category 2: Benign finding(s).
== END 2023-06-07 10:43 | disposition home or self-care (01) ==
PROVIDERS: PCP Family Medicine; Visit Provider Surgery
DX: N64.52 Nipple discharge (principal); R92.8 Other abnormal and inconclusive findings on diagnostic imaging of breast
CPT/HCPCS: 76641; 77062; 77066; G0279

== ENCOUNTER 2023-06-21 10:29 | Outpatient (CLI) | payer MEDICARE, SELFPAY ==
--- NOTE | ~2023-06-21 | MR_ITS ---
EXAMINATION: MR breast BI wo/w con INDICATION: Left nipple discharge TECHNIQUE: Axial VIBRANT pre and dynamic post contrast, Sagittal VIBRANT post contrast, Axial T2 STIR ASSET COMPARISON: Diagnostic mammogram and ultrasound dated 06/07/2023 CONTRAST: Multihance, 16 cc BREAST COMPOSITION: Scattered fibroglandular tissue FINDINGS: RIGHT BREAST: There is minimal background parenchymal enhancement. There is a 6 mm round mass in the middle third of the slightly upper, slightly outer breast at the 11:00 location, 6 cm from the nipple which demonstrates washout kinetics. No pathologically enlarged axillary or internal mammary lymph n odes are identified. LEFT BREAST: There is minimal background parenchymal enhancement. No abnormal enhancement is present after contrast administration. No pathologically enlarged axillary or internal mammary lymph nodes ar e identified. There is a 5 mm T2 hyperintense mass in the skin of the slightly outer left breast abut ting the nipple. No associated abnormal enhancement is identified. Mildly dilated subareolar duct is noted, as seen on the comparison ultrasound. IMPRESSION: 1. No MRI correlate identified for the patient's left nipple discharge. Continued clinical examinatio n is recommended. In addition, follow-up MRI in six months is recommended to evaluate the periareolar cystic lesion. 2. Indeterminate mass in the right breast as detailed above. Second Look right breast ultrasound is r ecommended. BI-RADS Category 0: Incomplete: Needs additional imaging evaluation. Reviewed, dictated and finalized at location A. RESS MAKER IMPRESSION: 1. No MRI correlate identified for the patient's left nipple discharge. Continu ed clinical examination is recommended. In addition, follow-up MRI in six month s is recommended to evaluate the periareolar cystic lesion. 2. Indeterminate mass in the right breast as detailed above. Second Look right breast ultrasound is recommended. BI-RADS Category 0: Incomplete: Needs additional imaging evaluation.
== END 2023-06-21 10:30 | disposition home or self-care (01) ==
PROVIDERS: PCP Family Medicine; Visit Provider Surgery
DX: R92.8 Other abnormal and inconclusive findings on diagnostic imaging of breast (principal); N64.52 Nipple discharge
CPT/HCPCS: 77049; A9577; C8908

== ENCOUNTER 2023-07-11 11:08 | Outpatient (CLI) | payer MEDICARE, SELFPAY ==
--- NOTE | ~2023-07-11 | US_ITS ---
US breast RT limited DATE: 07/11/2023 11:30 INDICATION: Second look ultrasound for MRI indeterminate mass in slightly outer breast at 11:00 posit ion 6 cm from the nipple which demonstrated washout kinetics TECHNIQUE: Real-time and color flow imaging targeted at 11:00 4 cm from nipple COMPARISON: June 21, 2023 exam arm breast examination 06/07/2023 diagnostic bilateral mammogram FINDINGS: At 11:00 4 cm from the nipple there is a parallel oval circumscribed sonolucent lesion parag uring 4.7 x 4.4 x 2.9 mm, with no internal vascularity or posterior shadowing. There is posterior wal l enhancement. This is likely a benign cyst. IMPRESSION: Probable benign cyst of right breast 11:00 4 cm from nipple Recommendation for six-month follow-up MRI breast examination was made on the June 21, 2023 MR br east examination (BI-RADS Category 3: Probably benign). Reviewed, dictated and finalized at Location A. Reviewed, dictated and finalized at location A. T ANATOMIST IMPRESSION: Probable benign cyst of right breast 11:00 4 cm from nipple Recommendation for six-month follow-up MRI breast examination was made on the eb2023 MR breast examination (BI-RADS Category 3: Probably benign).
== END 2023-07-11 11:09 ==
LOC: MICIMG 11:09
PROVIDERS: PCP Surgery; Visit Provider Surgery
DX: R92.8 Other abnormal and inconclusive findings on diagnostic imaging of breast (principal)
CPT/HCPCS: 76642

== ENCOUNTER 2023-07-25 11:26 | Outpatient (CLI) | payer MEDICARE, SELFPAY ==
[2023-07-25 12:11] LABS: Anion Gap 6 mmol/L (8-16); Blood Urea Nitrogen 11 mg/dL (7-17); Calcium 9.5 mg/dL (8.4-10.2); Carbon Dioxide 30 mmol/L (22-30); Chloride 106 mmol/L (98-107); Estimated Glomerular Filt Rate > 60; Glucose 97 mg/dL (65-110); Potassium 3.7 mmol/L (3.4-5.0); Sodium 142 mmol/L (137-145)
== END 2023-07-25 11:27 | disposition home or self-care (01) ==
LOC: ANHSURGERY 11:30
PROVIDERS: PCP Family Medicine; Visit Provider Surgery
DX: Z51.81 Encounter for therapeutic drug level monitoring (principal); Z01.818 Encounter for other preprocedural examination; Z79.899 Other long term (current) drug therapy
CPT/HCPCS: 36415; 80048

== ENCOUNTER 2023-07-28 01:29 | Day surgery (SDC) | payer MEDICARE, SELFPAY ==
[2023-07-22 09:24] VITALS: BMI 31.8
--- NOTE | 2023-07-22 09:54 | PC.NURSE ---
Report to the Outpatient Waiting Room, entrance under the green pavilion located off [facility], at time __7:00AM on date __07/28/23 . Planned Procedure Time: __9:00AM . Time changes happen often and if your time is changed the preop area will call you the afternoon before. - You and your visitor will be asked to self-screen and do not enter if you have any COVID symptoms. - A mask is optional within the hospital at this time. Patients may have clear liquids (water, carbonated beverages, clear teas, apple juice) until 3 hours prior to surgery with a maximum of 20 ounces. - No food from midnight until time of surgery. Take the following medications with a SIP of water the morning of surgery: __CARVEDILOL & BREZTRI INHALER. MAY USE ALBUTEROL INHALER NEEDED. DO NOT STOP ANY OF YOUR OTHER PRESCRIPTION MEDICATIONS PRIOR TO SURGERY ?EXCEPT THE FOLLOWING Medications to discontinue per physician ____HOLD XERALTO (RIVAROXABAN) PER DR LÓPEZ- OFFICE CALLED TO CLARIFY & THEY WILL CONTACT PATIENT. HOLD ALL VITAMINS/SUPPLEMENTS 3 DAYS PRE-OP PER ANESTHESIA- LAST DOSE- 07/24/23. Please no make-up, nail albanian, hairspray, perfume, deodorant, or body powder the day of surgery. No jewelry (including any body piercings) or valuables the day of surgery, leave them at home. Please take a shower or bath the night before, or the morning of, surgery with an antibacterial soap. Wear comfortable, loose fitting clothing. - Jewelry must be removed prior to entering the operating room. Rings and piercings that are not removed may be cut off. - The hospital will not accept responsibility for valuables. - Please leave all valuables, including medications, at home the day of surgery. If you are going home after surgery, a licensed stock driver must drive you home. - NO public transportation without another adult if you receive anesthesia. - We recommend that an adult stay with you for 24 hours following discharge. - We also recommend that you do not drive, make important decision, drink alcoholic beverages, or take any drugs that were not prescribed by your health care provider for at least 24 hours after your discharge time. Follow any additional instructions given to you from your surgeon. If you or anyone in your household have experienced Covid symptoms in the past week, please notify your surgeon or the nurse liaison at the phone number below for possible testing. Telephone instructions given to ____PATIENT and asked if any additional questions and then verbalized understanding. Patient advised to call surgeon office or pre surgery nurse liaison [phone] if any additional questions.
[2023-07-28] VITALS (8 sets, daily range): BP systolic 129–151; BP diastolic 58–77; PULSE 69–84; RESP 12–21; TEMP 36.3–36.7; O2SAT 97–100
--- NOTE | 2023-07-28 07:08 | WPDHPUPDATE1 ---
History and Physical Update Update Date/Time: 07/28/23 07:08 History and Physical has been reviewed, including an updated exam of the patient. There are NO changes in the patient's condition. Risks, benefits, and alternatives have been discussed and questions answered. Patient agrees to proceed with procedure.
[2023-07-28] MEDS: LACTATED RINGERS 1,000 ML 30 ML IV CONT (07:30)
[2023-07-28] MEDS: ACETAMINOPHEN 500 MG TABLET 1000 MG PO (07:31)
--- NOTE | 2023-07-28 08:24 | WPDANESEPPF ---
Anes - Initial Pre Proc Eval Procedure: Operation Date: 07/28/23 09:00 Proposed Procedures p Excisional Biopsy Left Mammary Duct, Possible Total Duct Excision, Left Nipple Exploration - Shereen Curran MD Date/Time: 07/28/23 08:24 Surgeon: Shereen Curran MD Pre Op Diagnosis: left nipple discharge Patient Data Age: 82 Gender: F Height: 1.63 m Weight: 82.9 kg Last Vital Signs Temp 98.0 F 07/28/23 07:00 Pulse 84 07/28/23 07:00 Resp 18 07/28/23 07:00 BP 144/69 H 07/28/23 07:00 Pulse Ox 100 07/28/23 07:00 O2 Del Method Room Air 07/28/23 07:00 Allergies Allergy/AdvReac Type Severity Reaction Status Date / Time Penicillins Allergy Mild rash Verified 07/22/23 09:19 Sulfa (Sulfonamide Allergy Mild Rash Verified 07/22/23 09:19 Antibiotics) oseltamivir [From Tamiflu] AdvReac ANGIOEDEMA/facial Verified 07/22/23 09:58 swelling Home Medications Medication Instructions Recorded Confirmed Type budesonide 160 mcg-glycopyr 9 2 inh inhalation BID 02/01/22 07/22/23 History mcg-formot 4.8 mcg/actuation HFA inhaler (Breztri Aerosphere) cholecalciferol (vitamin D3) 125 125 mcg PO DAILY 02/08/23 07/22/23 History mcg (5,000 unit) capsule rivaroxaban 20 mg tablet (Xarelto) See Rx Instructions .Route 05/04/23 07/22/23 Rx .COMPLEX #30 tabs atorvastatin 40 mg tablet 40 mg PO EVENING #90 tabs 07/09/23 07/22/23 Rx albuterol sulfate 90 mcg/actuation 1 inh inhalation Q4H PRN shortness 07/20/23 07/22/23 Rx aerosol inhaler of breath or wheezing #8.5 grams carvedilol 12.5 mg tablet 12.5 mg PO BID 07/22/23 07/22/23 History famotidine 40 mg tablet 40 mg PO DAILY 07/22/23 07/22/23 History hydrochlorothiazide 12.5 mg tablet 12.5 mg PO QAM 07/22/23 07/22/23 History Patient hx anesthesia problems: none Family hx anesthesia problems: none Results Review: All pre-operative results and documents have been reviewed as part of the pre-operative evaluation. [facility] Past Medical History Medical History (Updated 07/20/23 @ 14:33 by Arely Tucker PA-C) Abnormal mammogram Acute low back pain Anemia Benign reactive hypertension Breast cancer screening Bronchitis, allergic Colon cancer screening COPD (chronic obstructive pulmonary disease) COPD exacerbation Crossover toe deformity of right foot Diarrhea Discharge from left nipple Hx of influenza Ischemic stroke Left hand weakness Mixed hyperlipidemia JOSE on CPAP Poor appetite Post menopausal syndrome Pulmonary HTN Spasm of muscle of lower back Upper respiratory infection Surgical History Surgical History (Updated 07/20/23 @ 14:33 by Arely Tucker PA-C) H/O total knee replacement S/P EVELIA (total abdominal hysterectomy) Family History Family History Mother Family history of kidney disease, Onset Age: 47 Patient's mother is Father Family history of kidney disease, Onset Age: 82 Patient's father is Sibling Patient's sister is Other Family history of chronic obstructive pulmonary disease Social History Social History Social History: Smoking packs per day: 0.5 Smoking cigarettes per day: 10.0 Years smoked: 30 Smoking pack-years: 15.00 Smoking status: Former smoker Tobacco type: cigarettes Second hand tobacco smoke exposure: No Smoking end date: 11/06/98 Alcohol intake: never Substance use: never Substance use type: does not use Lack of Transportation: No Lack of Food: Never True Current Housing: I Have Housing Concerned About Future Housing: No Difficulty Paying Gas/Electric Bills: No Difficulty Paying for Meds: No Currently Unemployed: YES Education: Decline to Answer Difficulty w/ Childcare or Family Care: No Living arrangements: alone Occupation/Education: retired Gender ident
[2023-07-28] MEDS: ceFAZolin 2 GM/D5W 50 ML 2 GM/50 ML BAG IVPB (09:03)
--- NOTE | 2023-07-28 09:43 | W.PM.PROC2 ---
Procedure Note - Detailed Date of Procedure 07/28/23 Pre-op Diagnosis Pathological left nipple discharge Post-op Diagnosis Same Procedure Performed Left breast total duct excision Surgeon Shereen Curran MD Paper Tube Grader Tori Townsend PA-C Anesthesia General Description of Procedure Patient was identified in the preoperative holding area brought to the operating room suite. She was laid supine the operating table sequential compression devices were applied. Anesthesia was induced without difficulty. The left chest area was prepped and draped in a sterile fashion. The superior areolar area was infiltrated with 0.5% Marcaine with epinephrine and a small superior periareolar incision was made with a 15 blade. Dissection was carried down through the subcutaneous tissue and tunneled towards the central duct. A small lacrimal probe was inserted through the duct identified on exam with the clear nipple discharge. I was unable to advance the probe very far, and I proceeded to excise all the central ducts in the area. The ducts were excised to a length of approximately 2 cm. The previous central the that was noted to have a clear nipple discharge was again probed with a lacrimal probe and this was confirmed to have been excised. The cavity was irrigated with saline and hemostasis was assured. The upper breast tissue was then dissected down in advanced over to the central portion to close the central duct excision area to prevent the nipple from retracting. Several interrupted 3-0 Vicryl intramammary sutures were placed to again close the central cavity. The deep dermal layer was then closed with 3-0 Vicryl followed by 4-0 Monocryl for the subcuticular layer. Dermabond was applied followed by a sterile dressing a surgical bra. Patient was awoken from anesthesia and taken to the recovery area in stable condition. All needles, instruments, sponge counts were correct as reported by the operating room staff. Patient tolerated the procedure well with no immediate complications. Estimated Blood Loss 5 Pathology Yes Complications No immediate complications Condition Stable Disposition PACU [facility] Billing Surgery - Charge Forward: Surgery Billing (CPT 19965)
== END 2023-07-28 11:30 | disposition home or self-care (01) ==
PROVIDERS: PCP Family Medicine; Visit Provider Surgery
PROC: (CPT 19120; principal; 2023-07-28 09:00)
DX: D24.2 Benign neoplasm of left breast (principal); I10 Essential (primary) hypertension; J44.1 Chronic obstructive pulmonary disease with (acute) exacerbation; E78.2 Mixed hyperlipidemia; D64.9 Anemia, unspecified; G47.33 Obstructive sleep apnea (adult) (pediatric); E66.9 Obesity, unspecified; Z68.31 Body mass index [BMI] 31.0-31.9, adult; Z79.51 Long term (current) use of inhaled steroids; Z98.890 Other specified postprocedural states; Z99.89 Dependence on other enabling machines and devices; Z87.891 Personal history of nicotine dependence
CPT/HCPCS: 19120; 36415; 80048; 88305; A9270; J0690; J1100; J2405; J2704; J3010; J7120

== ENCOUNTER 2023-12-31 11:18 | Emergency (ER) | payer MEDICARE, SELFPAY ==
--- NOTE | ~2023-12-31 | CT_ITS ---
EXAMINATION: CT abdomen pelvis w con DATE: 12/31/2023 15:04 INDICATION: Right sided abdominal pain TECHNIQUE: Computed tomography (CT) of the abdomen and pelvis was performed with 100 mL Omnipaque-350 intravenous contrast. Automated exposure control and iterative reconstruction technique were employe d. The dose-length product was 636.94 mGy-cm. COMPARISON: None. FINDINGS: Lower thorax: Mild dependent atelectasis/scarring. Granulomatous calcifications. Mitral annulus calci fication. Liver: Normal. Biliary/Gallbladder: Gallbladder is normal. No bile duct dilation. Pancreas: No mass or duct dilation. Spleen: Normal. Adrenals:No mass. Kidneys: No suspicious mass, obstructing stone, or hydronephrosis. GI tract: Small hiatal hernia. Mild distal esophageal and gastric wall edema. No small or large bowel dilation. Appendix not visualized. Diverticulosis without diverticulitis. Mesentery/Peritoneum: No ascites, mass, or free air. Retroperitoneum: No mass. Atherosclerotic abdominal aortic and/or arterial calcifications. Pelvis: Pelvic organs are within normal limits. Soft Tissues: Soft tissues and body wall unremarkable. Bones: No acute osseous finding. IMPRESSION: Mild esophagitis/gastritis. Otherwise, no acute abdominopelvic process detected. Reviewed, dictated and finalized at location K.
[2023-12-31 11:41] VITALS: BP 134/68; PULSE 76; RESP 16; TEMP 36.8; O2SAT 96
[2023-12-31] MEDS: KETOROLAC 30 MG/ML VIAL (*BKC) 15 MG IV PUSH (13:50)
[2023-12-31] MEDS: SODIUM CHLORIDE 0.9% IV 1,000 ML 999 ML IV CONT (13:52)
[2023-12-31 14:01] LABS: Basophils Percent Auto 0.4 % (0.2-1.2); Eosinophils Absolute Auto 0.1 K/mm3 (0-0.3); Hematocrit 33.9 % (37.0-47.0); Hemoglobin 10.8 g/dL (12.0-15.0); Immature Granulocyte Absolute 0.02 K/mm3 (0.00-0.031); Immature Granulocyte Percent A 0.4 % (0-0.5); Lymphocytes Absolute Auto 2.76 K/mm3 (0.9-3.2); Mean Corpuscular HGB Conc 31.9 g/dl (32-36); Mean Corpuscular Hemoglobin 27.3 pg (26-34); Mean Corpuscular Volume 85.8 fl (80-100); Mean Platelet Volume 10.2 fl (7.4-10.4); Monocytes Absolute Auto 0.6 K/mm3 (0.1-0.6); Monocytes Percent Auto 10.6 % (2.6-8.5); Neutrophils Absolute Auto 1.8 K/mm3 (1.3-6.7); Neutrophils Percent Auto 34.6 % (45.5-73.1); Platelet Count Result 226 k/mm3 (150-375); Red Blood Count 3.95 M/mm3 (4.2-5.4); White Blood Count 5.2 K/mm3 (4.5-10.0)
[2023-12-31 14:04] LABS: Alanine Aminotransferase 25 U/L (6-35); Albumin Level 3.7 g/dL (3.5-5.1); Alkaline Phosphatase 95 U/L (38-126); Anion Gap 9 mmol/L (4-12); Aspartate Amino Transferase 52 U/L (14-36); Bilirubin,Total 0.4 mg/dL (0.2-1.3); Blood Urea Nitrogen 13 mg/dL (7-17); Calcium 8.8 mg/dL (8.4-10.2); Carbon Dioxide 27 mmol/L (22-30); Chloride 100 mmol/L (98-107); Estimated CRCL calculation 37 ml/min; Estimated Glomerular Filt Rate > 60; Glucose 95 mg/dL (65-110); Magnesium 2.1 mg/dL (1.6-2.3); Potassium 3.9 mmol/L (3.4-5.0); Sodium 136 mmol/L (137-145)
[2023-12-31 14:06] LABS: INR 1.9
[2023-12-31 14:07] LABS: Partial Thromboplastin Time 41.7 Seconds (22.3-36.8)
--- NOTE | 2023-12-31 14:28 | ED.ABDPAIN ---
HPI - Abdominal Pain General Chief Complaint: Abdominal Pain Stated Complaint: side pain Time Seen by Provider: 12/31/23 12:52 History of Present Illness HPI narrative: Patient is an 83-year-old female who presents ER with complaint of abdominal pain and back pain. Ongoing over last week but over last 2 days she has developed cramping abdominal pain more on the right side that so she would diarrhea. She has been having cramping in her right low back. When she sits forward in the ER she has cramping in her right leg. No fevers or chills. No blood in urine. No blood in stool. Diarrhea has slowed down today. No known sick contacts. No association with eating. No alleviating factors. Related Data Home Medications Medication Instructions Recorded Confirmed budesonide 160 mcg-glycopyr 9 2 inh inhalation BID 02/01/22 11/23/23 mcg-formot 4.8 mcg/actuation HFA inhaler (Breztri Aerosphere) cholecalciferol (vitamin D3) 125 125 mcg PO DAILY 02/08/23 11/23/23 mcg (5,000 unit) capsule Allergies Allergy/AdvReac Type Severity Reaction Status Date / Time oseltamivir [From Tamiflu] Allergy Severe ANGIOEDEMA/facial Verified 12/31/23 13:55 swelling Penicillins Allergy Mild rash Verified 12/31/23 13:55 Sulfa (Sulfonamide Allergy Mild Rash Verified 12/31/23 13:55 Antibiotics) Review of Systems Review of Systems: All systems reviewed & are unremarkable except as noted in HPI and below Constitutional: Constitutional: Reports no additional constitutional complaints ENT: Reports system reviewed and no additional complaints, except as documented Cardiovascular: Cardiovascular: Reports no additional cardiovascular complaints Respiratory: Respiratory: Reports no additional respiratory complaints Gastrointestinal: Gastrointestinal: Reports abdominal pain, Reports diarrhea, Denies nausea and Denies vomiting Musculoskeletal: Musculoskeletal: Reports back pain, Denies arthralgias, Denies joint swelling and Reports muscle cramps PMFSH Past Medical History Medical History Abnormal mammogram Acute low back pain Anemia Benign reactive hypertension Breast cancer screening Bronchitis, allergic Colon cancer screening COPD (chronic obstructive pulmonary disease) COPD exacerbation Crossover toe deformity of right foot Diarrhea Discharge from left nipple Hx of influenza Ischemic stroke Left hand weakness Mixed hyperlipidemia JOSE on CPAP Poor appetite Post menopausal syndrome Pulmonary HTN Spasm of muscle of lower back Upper respiratory infection Surgical History Surgical History H/O total knee replacement S/P EVELIA (total abdominal hysterectomy) Family History Family History Mother Family history of kidney disease, Onset Age: 47 Patient's mother is Father Family history of kidney disease, Onset Age: 82 Patient's father is Sibling Patient's sister is Other Family history of chronic obstructive pulmonary disease Social History Social History Social History: Smoking packs per day: 0.5 Smoking cigarettes per day: 10.0 Years smoked: 30 Smoking pack-years: 15.00 Smoking status: Former smoker Tobacco type: cigarettes Second hand tobacco smoke exposure: No Smoking end date: 11/06/98 Alcohol intake: never Substance use: never Substance use type: does not use Do You Feel Safe in your Home?: Yes Lack of Transportation: No Lack of Food: Never True Current Housing: I Have Housing Concerned About Future Housing: No Difficulty Paying Gas/Electric Bills: No Difficulty Paying for Meds: No Currently Unemployed: YES Education: Decline to Answer Difficulty w/ Childcare or Family Care: No Living arr
[2023-12-31 16:15] VITALS: BP 133/74; PULSE 65; RESP 19; O2SAT 100
== END 2023-12-31 16:17 | disposition home or self-care (01) ==
PROVIDERS: Emergency Provider Emergency Medicine; PCP Family Medicine
DX: K20.90 Esophagitis, unspecified without bleeding (principal); I10 Essential (primary) hypertension; I27.20 Pulmonary hypertension, unspecified; J44.9 Chronic obstructive pulmonary disease, unspecified; E78.2 Mixed hyperlipidemia; D64.9 Anemia, unspecified; G47.33 Obstructive sleep apnea (adult) (pediatric); Z86.73 Personal history of transient ischemic attack (TIA), and cerebral infarction without residual deficits; Z87.891 Personal history of nicotine dependence; Z96.659 Presence of unspecified artificial knee joint; Z90.710 Acquired absence of both cervix and uterus; Z79.01 Long term (current) use of anticoagulants; Z79.899 Other long term (current) drug therapy
CPT/HCPCS: 36415; 74177; 80053; 83735; 85025; 85610; 85730; 96361; 96374; 99284; J1885; J7030; Q9967

== ENCOUNTER 2024-08-29 12:51 | Outpatient (CLI) | payer MEDICARE, SELFPAY ==
--- NOTE | ~2024-08-29 | US_ITS ---
EXAMINATION: US carotid duplex BI DATE: 08/29/2024 13:50 INDICATION: Cerebral infarction. Carotid atherosclerosis. TECHNIQUE: Grayscale, color Doppler, and pulsed Doppler images of the cervical carotid arteries were obtained. The degree of vessel stenosis is placed in one of the following categories: normal, <50%, 5 0-69%, >=70% but less than near-occlusion, near-occlusion, or total occlusion. Note that percent sten osis relative to normal distal artery lumen diameter is indirectly measured from velocity measurement s as described by Patric, et al. Radiology 2003; 229:340-346. COMPARISON: Carotid CT angiogram dated 01/29/2023 FINDINGS: RIGHT: The right common carotid artery (CCA) peak systolic velocity (PSV) is 100 cm/s. The right internal ca rotid artery (ICA) PSV is 98 cm/s. The right ICA end-diastolic velocity (EDV) is 20 cm/s. The right I CA/CCA PSV ratio is 1.0. Grayscale and color Doppler images yield an estimate of <50% diameter reduct ion from plaque in the ICA. The external carotid artery (ECA) PSV is 103 cm/s. There is antegrade concepción w in the right vertebral artery. LEFT: The left CCA PSV is 92 cm/s. The left ICA PSV is 124 cm/s. The left ICA EDV is 21 cm/s. The left ICA/ CCA PSV ratio is 1.3. Grayscale and color Doppler images yield an estimate of <50% diameter reduction from plaque in the ICA. The ECA PSV is 104 cm/s. There is antegrade flow in the left vertebral arter y. IMPRESSION: 1. <50% stenosis in the right internal carotid artery. 2. <50% stenosis in the left internal carotid artery. Reviewed, dictated and finalized at location A.
--- OUTSIDE RECORDS SUMMARY | 2024-08-29 14:31 | XMS_ITS | Encounter Summary ---
Author Organization [facility] Address [address] [place] [address] Care Team Providers Care Smart Grid Engineer Name Role Phone Chiquis Cam MD Primary Care Provider [phone] Encounter Details Date Type Department Care Team (Latest Contact Info) Description 04/03/2007 Outpatient Historical HIS [facility] Jack, Darlene King MD [address] [place] [address] Other Screening Mammogram (Primary Dx) Social History Tobacco Use Types Packs/Day Years Used Date Smoking Tobacco: Never Assessed Comments Unknown Sex and Gender Information Value Date Recorded Sex Assigned at Not on file Legal Sex Female 3:20 AM GREY INSPECTOR Gender Identity Not on file Sexual Orientation Not on file documented as of this encounter Plan of Treatment Upcoming Encounters Date Type Department Care Team (Late st Contact Info) Description 09/27/2024 1:10 PM CDT Office Visit [facility] GRAIN SHOVELER Medical [place] [address] [place] [address] Lula Erwin DO [address] [place] [address] documented as of this encounter Visit Diagnoses Diagnosis Other screening mammogram- Primary documented in this encounter Care Teams Smart Grid Engineer Relationship Specialty Start Date End Date Chiquis Cam MD PCP - General Family Practice 1/17/11 documented as of this encounter
--- OUTSIDE RECORDS SUMMARY | 2024-08-29 14:31 | XMS_ITS | Encounter Summary ---
Author Organization [facility] Address [address] [place] [address] Care Team Providers Care Cell Preparer Name Role Phone Chiquis Cam MD Primary Care Provider +1- [phone] Encounter Details Date Type Department Care Team (Latest Contact Info) Description 02/28/2006 Outpatient Historical HIS [facility] Jack, Darlene King MD [address] [facility] [address] [place] [address] Other Screening Mammogram (Primary Dx) Social History Tobacco Use Types Packs/Day Years Used Date Smoking Tobacco: Never Assessed Comments Unknown Sex and Gender Information Value Date Recorded Sex Assigned at Not on file 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 [facility] [address] [place] [address] documented as of this encounter Visit Diagnoses Diagnosis Other screening mammogram- Primary documented in this encounter Care Teams Cell Preparer Relationship Specialty Start Date End Date Chiquis Cam MD PCP - General Family Practice 1/17/11 documented as of this encounter
--- OUTSIDE RECORDS SUMMARY | 2024-08-29 14:31 | XMS_ITS | Encounter Summary ---
Author Organization [facility] Address 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 [facility] [address] [place] [address] documented as of this encounter Visit Diagnoses Diagnosis Lump or mass in breast- Primary documented in this encounter Care Teams Dermatology Sales Representative Relationship Specialty Start Date End Date Chiquis Cam MD PCP - General Family Practice 05/25/10 documented as of this encounter
--- OUTSIDE RECORDS SUMMARY | 2024-08-29 14:31 | XMS_ITS | Clinical Summary ---
Author Organization [facility] Address [address] [place] [address] Phone Care Team Providers Care Respiratory Technician Name Role Phone Chiquis Cam MD Primary Care Provider +1- [phone] Allergies Active Allergy Reactions Criticality Noted Date Comments Penicillins Hives,Rash 08/07/2015 Medications carvedilol (COREG) 12.5 MG Tablet Take 12.5 mg by mouth 2 times daily. Active triamterene-hyd rochlorothiazid e (MAXZIDE) 75-50 MG Tablet Take 1 Tab by mouth daily. Active hydrochlorothia zide 12.5 MG Tablet Take by mouth. Activ e pravastatin (PRAVACHOL) 20 MG Tablet Take 20 mg by mouth daily. Active Cholecalciferol (VITAMIN D PO) Take by mouth. Active budesonide-form oterol fumarate (SYMBICORT) 160-4.5 MCG/ACT Aerosol take 2 Puffs by inhalation 2 times daily. Active tamoxifen citrate 20 MG TabletIndicatio ns:Intraductal papilloma of breast, right Take 1 Tab by mouth daily. 90 Tab 2 8 Active predniSONE (DELTASONE) 10 MG Tablet 8 Active BABY ASPIRIN PO Take 81 mg by mouth daily. Active azithromycin (ZITHROMAX) 250 MG Tablet 9 Active hydroCHLOROthia zide (MICROZIDE) 12.5 MG Capsule Take 12.5 mg by mouth daily. Active albuterol (PROAIR HFA) 108 (90 Base) MCG/ACT Aerosol Solution take 2 Puffs by inhalation. Active Active Problems Problem Noted Date Diagnosed Date Intraductal papilloma of breast 08/07/2015 Increased risk of breast cancer 08/07/2015 Family History Medical History Relation Name Comments Renal Failure Mother Cancer Sister Relation Name Status Comments Mother Sister Social History Tobacco Use Types Packs/Day Years Used Date Smoking Tobacco: Former Cigarettes 1 30 Smokeless Tobacco: Never Alcohol Use Standard Drinks/Week Comments Yes 0 (1 standard drink = 0.6 oz pur e alcohol) OCCASIONALLY Comments No Sex and Gender Information Value Date Recorded Sex Assigned at Not on file Legal Sex Female 3:17 PM MEDICAID BILLING SPECIALIST Gender Identity Not on file Sexual Orientation Not on file Last Filed Vital Signs Vital Sign Reading Time Taken Comments Blood Pressure 128/66 10/09/2018 10:04 AM CDT Pulse 89 10/09/2018 10:04 AM CDT Temperature 36.2 C (97.2 F) 10/09/2018 10:04 AM CDT Respiratory Rate 18 10/09/2018 10:04 AM CDT Oxygen Saturation 99% 10/09/2018 10:04 AM CDT Inhaled Oxygen Concentration - - Weight 83.5 kg (184 lb) 10/09/2018 10:04 AM CDT Height 170.2 cm (5' 7 ) 06/09/2017 2:40 PM MEDICAID BILLING SPECIALIST Body Mass Index 28.82 06/09/2017 2:40 PM MEDICAID BILLING SPECIALIST Plan of Treatment Health Maintenance Due Date Last Done Comments Hepatitis C Virus (HCV) Screening 1940 Pneumococcal Immunization (50+ years) (1 of 1 - PCV) 1990 Respiratory Syncytial Virus (RSV) Immunization (Adult) (1 - 1-dose 75+ series) 11/03/2015 Mammogram 06/23/2016 06/23/2015 Influenza Immunization (#1) 01/08/202403/09, 02/23/2017, 02/12/2013 SARS-COV-2 Immunization ( season) 2024 11/21/2021, 03/13/2021, 07/11/2020, Additional history exists DTaP/Tdap/Td Immunization Discontinued 02/12/2013 TdaP Immunization Completed 02/12/2013 Zoster Immunization Completed 05/23/2018, 09/14/201 8 Hepatitis B Immunization Aged Out No longer eligible based on patient's age to complete this topic Meningococcal Immunization (ACWY) Aged Out No longer eligible based on patient's age to complete this topic Rotavirus Immunization Aged Out No lo nger eligible based on patient's age to complete this topic Procedures Procedure Name Priority Date/Time Associated Diagnosis Comments DONNIE DIAG BILATERAL DIGITAL W CAD Routine 06/23/2015 from Last 3 Months or Most Recently Relevant to Health Maintenance Results * DONNIE DIAG BILATERAL DIGITAL W CAD (06/23/2015) Anatomical Region Laterality Modality breast Bilateral Other Carmen العراقي DO IMG MAMMO ORDERABLES Final Result from Last 3 Months or Most Recently Relevant to Health Maintenance Insurance MEDICARE C HUMANA Care Teams Respiratory Technician Relationship Specialty Start Date End Date Chiquis Cam MD [address] [facility] [address] [place] [address] PCP - General Family Medicine 07/24/15
--- OUTSIDE RECORDS SUMMARY | 2024-08-29 14:31 | XMS_ITS | Encounter Summary ---
Author Organization [facility] Address [address] [place] [address] Care Team Providers Care Mat Maker Name Role Phone Chiquis Cam MD Primary Care Provider +1- [phone] Encounter Details Date Type Department Care Team (Latest Contact Info) Description 02/08/[address] 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 [facility] [address] [place] [address] documented as of this encounter Visit Diagnoses Diagnosis Other screening mammogram- Primary documented in this encounter Care Teams Mat Maker Relationship Specialty Start Date End Date Chiquis Cam MD PCP - General Family Practice 05/25/10 documented as of this encounter
--- OUTSIDE RECORDS SUMMARY | 2024-08-29 14:31 | XMS_ITS | Referral Summary ---
Author Organization [facility] [address] Address [address] [place] [address] Care Team Providers Care Locker Plant Attendant Name Role Phone Chiquis Cam MD Primary Care Provider Allergies Active Allergy Reactions Criticality Noted Date Comments Penicillin G Rash Medium 01/29/2019 Social History Tobacco Use Types Packs/Day Years Used Date Smoking Tobacco: Never Assessed Personal Safety Answer Date Recorded Getting School Help Needed Not on file 07/21 Comments Unknown Sex and Gender Information Value Date Recorded Sex Assigned at Not on file Legal Sex Female 12:54 AM PATTERN WEAVER Gender Identity Not on file Sexual Orientation Not on file Plan of Treatment Not on file Insurance [employer] CHOICE MEDICARE PPO Care Teams Locker Plant Attendant Relationship Specialty Start Date End Date Chiquis Cam MD [address] [facility] [address] [place] [address] PCP - General Family Medicine 01/02/19
--- OUTSIDE RECORDS SUMMARY | 2024-08-29 14:31 | XMS_ITS | Clinical Summary ---
Author Organization [facility] Address [address] [place] [address] Care Team Providers Care Manufacturing Engineer Automotive Name Role Phone Chiquis Cam MD Primary Care Provider +1- [phone] Allergies Active Allergy Reactions Criticality Noted Date Comments Penicillins Hives,Rash,Unknown Low 08/07/2015 Medications CPAP DME DEVICE 9 cm. [employer] Ac tive atorvastatin 10 MG tablet Take 1 tablet (10 mg total) by mouth daily. 9 Active carvedilol 12.5 MG tablet Take 1 tablet (12.5 mg total) by mouth 2 (two) times daily. 9 Active cholecalciferol (VITAMIN D-3) 125 MCG (5000 UT) Tab Take 1 tablet (5,000 Units total) by mouth daily. Active mometasone (NASONEX) 50 MCG/ACT nasal spray by Nasal route as needed. Active albuterol sulfate HFA (PROAIR HFA) 108 (90 Base) MCG/ACT inhalerIndicati ons:Chronic obstructive pulmonary disease, unspecified COPD type (CMS/HCC HHS/HCC) Inhale 2 puffs into the lungs every 4 (four) hours as needed for Wheezing. 3 Inhaler 3 0 Active albuterol (2.5 MG/3ML) 0.083% nebulizer solutionIndicat ions:Chronic obstructive pulmonary disease, unspecified COPD type (CMS/HCC HHS/HCC) Take 3 mLs (2.5 mg total) by nebulization every 6 (six) hours as needed for Wheezing. 360 mL 3 0 Active ASPIRIN 81 OR Take 81 mg by mouth daily. Active famotidine 40 MG tablet Take 1 tablet (40 mg total) by mouth daily. 1 Active triamterene-hyd roCHLOROthiazid e 75-50 MG tablet Take 1 tablet by mouth daily. Active hydroCHLOROthia zide 12.5 MG tablet Take 1 tablet (12.5 mg total) by mouth every morning. 1 Active Budeson-Glycopy rrol-Formoterol (BREZTRI AEROSPHERE) 160-9-4.8 MCG/ACT AerosolIndicati ons:Chronic obstructive pulmonary disease, unspecified COPD type ([facility]) Inhale 2 puffs into the lungs 2 (two) times a day. 3 g 3 1 Active fluticasone propionate 50 MCG/ACT nasal spray 2 sprays by Each Nostril route as needed. 1 Active traMADol 50 MG tablet Take 50 mg by mouth every 8 (eight) hours as needed. 1 Active triamcinolone 0.1 % cream APPLY TOPICALLY THREE TIMES DAILY 1 Active tiZANidine 2 MG tablet Take 1 tablet (2 mg total) by mouth 3 (three) times daily as needed. 1 Active fluticasone-ume clidinium-vilan terol (TRELEGY) 100-62.5-25 MCG/INH AEROSOL POWDER, BREATH ACTIVATEDIndica tions:Chronic obstructive pulmonary disease, unspecified COPD type ([facility]) Inhale 1 puff into the lungs daily. 3 each 3 2 Active Additional Information Patient not taking.Reported on 08/19/2022 azithromycin (ZITHROMAX) 250 MG tabletIndicatio ns:Chronic obstructive pulmonary disease, unspecified COPD type ([facility]) TAKE ONE TABLET BY MOUTH THREE TIMES A WEEK, EVERY TUESDAY, TUESDAY, AND TUESDAY 30 tablet 2 3 Active Active Problems Problem Noted Date Diagnosed Date Respiratory failure with hypoxia ([facility]/ C) 03/13/2018 Cough 05/31/2017 COPD (chronic obstructive pu lmonary disease) ([facility]) 06/24/2016 Emphysema of lung ([facility]) 06/24/2016 Obesity 06/24/2016 Obstructive sleep apnea of adult 06/24/2016 Increased risk of breast cancer 08/07/2015 Intraductal papilloma of breast 08/07/2015 Immunizations Immunization Administration Dates Next Due Fluzone High Dose - >Age 65 (Prefilled Syringe) 01/25/2020,03/20/2018,02/23/2017 Influenza Adult (Generic) 03/03/2019,02/12/2013 Shingrix 05/23/2018,01/20/2018 Tdap (Generic) 02/12/2013 Family History Medical History Relation Comments Cancer Father Emphysema Father Lung Cancer Father Kidney Disease Mother Relation Status Comments Father Mother Social History Tobacco Use Types Packs/Day Years Used Date Smoking Tobacco: Former Cigarettes 1 40 1 939 - 1979 Smokeless Tobacco: Never Tobacco Cessation:Counseling Given: Yes Alcohol Use Standard Drinks/Week Comments Not Currently 0 (1 standard drink = 0.6 oz pur e alcohol) PHQ-2 Answer Date Recorded PHQ-2 Score - If the patient scores above 3, please move on to questions 3-9 1 06/09/2021 Comments Unknown Sex and Gender Information Value Date Recorded Sex Assigned at Not on file Legal Sex Female 5:48 PM CDT Gender Identity Not on file Sexual Orientation Not on file Last Filed Vital Signs Vital Sign Reading Time Taken Comments Blood Pressure 142/77 08/19/2022 10:02 AM CDT Pulse 89 08/19/2022 9:39 AM CDT Temperature 36.6 C (97.9 F) 08/19/2022 9:39 AM CDT Respiratory Rate 18 08/19/2022 9:39 AM CDT Oxygen Saturation 100% 08/19/2022 9:39 AM CDT RA Inhaled Oxygen Concentration - - Weight 84.4 kg (186 lb) 08/19/2022 9:39 AM CDT Height 162.6 cm (5' 4 ) 08/19/2022 9:39 AM CDT Body Mass Index 31.93 08/19/2022 9:39 AM CDT Plan of Treatment Health Maintenance Due Date Last Done Comments Pneumococcal Vaccine: 50+ Years (1 of 2 - PCV) 11/03/1959 Annual Medicare Wellness Visit 2005 Dexa Scan (General) 2005 RSV Immunization or 60+ Years (1 - 1-dose 75+ series) 11/03/2015 DTaP, Tdap and Td Vaccines ( 2 - Td or Tdap) 02/12/2023 02/12/2013 COVID-19 Vaccine (2023-2 5 season) 2024 PHQ-2 (Physician [place]) 05/09/2024 Zoster Vaccines Completed 05/23/2018, 01/20/2018 Meningococcal B Vaccine Aged Out No l onger eligible based on patient's age to complete this topic Meningococcal Vaccine Aged Out No keila jennifer eligible based on patient's age to complete this topic RSV Immunizations Under 20 Months Aged Out No longer eligible b ased on patient's age to complete this topic Insurance HUMANA Care Teams Manufacturing Engineer Automotive Relationship Specialty Start Date End Date Chiquis Cam MD [address] [facility] [address] [place], [place] [id number] PCP - General FAMILY PRACTICE 03/14/18
--- OUTSIDE RECORDS SUMMARY | 2024-08-29 14:31 | XMS_ITS | Clinical Summary ---
Author Organization [facility] [address] Address [address] [place] [address] Care Team Providers Care Compliance Representative Name Role Phone Chiquis Cam MD [...] on file Legal Sex Female 12:54 AM MEDICAL SERVICES MANAGER Gender Identity Not on file Sexual Orientation Not on file Plan of Treatment Not on file Insurance [employer] CHOICE MEDICARE PPO Care Teams Compliance Representative Relationship Specialty Start Date End Date Chiquis Cam MD [address] [facility] [address] [place] [address] PCP - General Family Medicine 01/02/19
--- OUTSIDE RECORDS SUMMARY | 2024-08-29 14:31 | XMS_ITS | Clinical Summary ---
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 [facility] [address] [place] [address] Health Maintenance Due Date Last Done Comments DTAP/TDAP/TD VACCINES (1 - Tdap) 11[birth year]03/1959 PNEUMOCOCCAL VACCINE 50+ YEARS (1 of 1 - PCV) 11/02/18 91 ZOSTER VACCINE (1 of 2) 1990 OSTEOPOROSIS SCREENING 2005 RSV VACCINE (60+ or ) (1 - 1-dose 75+ series) 11/03/2015 INFLUENZA VACCINE (#1) 2023 Insurance [employer]NA GOLD CHOICE [facility] Address: [address] [address] Care Teams Law Clerk Relationship Specialty Start Date End Date Chiquis Cam MD PCP - General Family Practice 05/25/10
--- OUTSIDE RECORDS SUMMARY | 2024-08-29 14:31 | XMS_ITS | Encounter Summary ---
Author Organization [facility] Address [address] [place] [address] Care Team Providers Care Financial Director Name Role Phone Chiquis Cma MD Primary Care Provider +1- [phone] Encounter Details Date Type Department Care Team (Latest Contact Info) Description 04/22/2008 Outpatient Historical HIS [facility] Hunt, Yvette King MD [address] [facility] [address] [place] [address] Other Screening Mammogram Social History Tobacco Use Types Packs/Day Years Used Date Smoking Tobacco: Never Assessed Comments Unknown Sex and Gender Information Value Date Recorded Sex Assigned at Not on file Legal Sex Female 3:20 AM LEGAL WRITING PROFESSOR Gender Identity Not on file Sexual Orientation Not on file documented as of this encounter Plan of Treatment Upcoming Encounters Date Type Department Care Team (Late st Contact Info) Description 09/27/2024 1:10 PM CDT Office Visit [facility] INDUSTRIAL EDITOR Medical [place] [address] [facility] [address] [place] [address] Lula Erwin DO [address] [facility] [address] [place] [address] documented as of this encounter Procedures Procedure Name Priority Date/Time Associated Diagnosis Comments MAMMO SCREEN BILAT W OR WO CAD Routine 04/22/2008 9:36 AM LEGAL WRITING PROFESSOR documented in this encounter Results * MAMMO DIGITAL SCREEN BILAT (04/22/2008 9:36 AM LEGAL WRITING PROFESSOR) Anatomical Region Laterality Modality Breast Bilateral Other 04/22/2008 9:36 AM LEGAL WRITING PROFESSOR Narrative 04/23/2008 7:26 AM LEGAL WRITING PROFESSOR [place] [id number] [place], [place] [address] Admit Date: 04/22/2008 JAYRO ARENAS Sex: F Admit Prov: YVETTE HUNT Date: 1940 Primary Care Prov: CARL ROSA CMRN: [id number] Room: AMRITA N: [id number] IMAGING SERVICES Ordering Prov: YVETTE HUNT Accession Number: [id number] Interpretation BILATERAL FULL FIELD DIGITAL SCREENING MAMMOGRAM WITH CAD. Date: 04/22/2008 History: Routine Screening. Technique: Full field digital craniocaudal and mediolateral oblique projections of both breasts were obtained. Computer aided diagnosis was performed. Comparison: March 2007, February 2006, and February 2005. Breast Parenchymal Composition: Heterogeneously dense, which lowers the sensitivity of mammography. Findings: No suspicious mass, suspicious microcalcifications, or architectural distortion in either breast is identified. Since the prior study, there has been no significant interval change. The computer aided diagnosis detects no significant abnormality. Overall Assessment: BI-RADS category 1: Negative. Recommendation: Annual mammography is recommended. Assessment BIRADS: 1-Negative Recommendation: Normal interval follow-up Dictated by: LIZA SOTOMAYOR Electronically signed by: LIZA SOTOMAYOR 04/23/2008 07:25 Transcribed: 04/22/2008 15:54 SDJ Procedure Note Liza Sotomayor - 04/23/2008 [place] [id number] [place], [place] [address] Admit Date: 04/22/2008 JAYRO ARENAS Sex: F Admit Prov: YVETTE HUNT Date: 1940 Primary Care Prov: CARL ROSA CMRN: [id number] Room: TOM-A SSN: [id number] IMAGING SERVICES Ordering Prov: YVETTE HUNT Interpretation BILATERAL FULL FIELD DIGITAL SCREENING MAMMOGRAM WITH CAD. Date: 04/22/2008 History: Routine Screening. Technique: Full field digital craniocaudal and mediolateral oblique projections of both breasts were obtained. Computer aided diagnosiswas performed. Comparison: March 2007, February 2006, and February 2005. Breast Parenchymal Composition: Heterogeneously dense, which lowersthe sensitivity of mammography. Findings: No suspicious mass, suspicious microcalcifications, or architectural distortion in either breast is identified. Since theprior study, there has been no significant interval change. The computeraided diagnosis detects no significant abnormality. Overall Assessment: BI-RADS category 1: Negative. Recommendation: Annual mammography is recommended. Assessment BIRADS: 1-Negative Recommendation: Normal interval follow-up Dictated by: LIZA SOTOMAYOR Electronically signed by: LIZA SOTOMAYOR 04/23/2008 07:25 Transcribed: 04/22/2008 15:54 SDJ Yvette Hunt MD MAMMO ORDERABLES Final R esult documented in this encounter Visit Diagnoses Diagnosis Other screening mammogram documented in this encounter Care Teams Financial Director Relationship Specialty Start Date End Date Chiquis Cam MD PCP - General Family Practice 05/25/10 documented as of this encounter
== END 2024-08-29 12:52 | disposition home or self-care (01) ==
PROVIDERS: PCP Student in an Organized Health Care Education/Training Program; Visit Provider Psychiatry & Neurology Neurology
DX: I65.23 Occlusion and stenosis of bilateral carotid arteries (principal); I63.89 Other cerebral infarction
CPT/HCPCS: 93880

== ENCOUNTER 2025-04-16 10:05 | Outpatient (CLI) | payer MEDICARE, SELFPAY ==
--- NOTE | ~2025-04-16 | XR_ITS ---
EXAMINATION: XR shoulder LT min 2V DATE: 04/16/2025 10:40 INDICATION: Pain TECHNIQUE: Left shoulder x-rays were obtained. COMPARISON: None. FINDINGS: Moderately severe degenerative appearing changes at the glenohumeral joint, greater tuberosity, and AC joint noted. No acute or aggressive bony or soft tissue process; no fracture lucency subluxation or dislocation seen. IMPRESSION: 1. Chronic appearing findings as above. 2. For persisting or worsening shoulder pain refractory to conservative therapy, consider correlation with shoulder MRI for optimal sensitivity. Reviewed, dictated and finalized at location A. ICAL RESEARCH MANAGER IMPRESSION: 1. Chronic appearing findings as above. 2. For persisting or worsening shoulder pain refractory to conservative therapy , consider correlation with shoulder MRI for optimal sensitivity.
--- NOTE | ~2025-04-16 | XR_ITS ---
EXAMINATION: [id number] DATE: 04/16/2025 10:40 INDICATION: Left knee pain TECHNIQUE: Weight bearing anteroposterior and flexed lateral views of the left knee were obtained. COMPARISON: None. FINDINGS: Tricompartmental osteoarthritis of the left knee with severe joint space narrowing in the medial compartment, moderate joint space narrowing with moderate-sized marginal osteophytes in the patellofemoral compartment and mild medial predominant nonuniform joint space narrowing in the lateral compartment with small central subchondral osteophyte along the anterior weightbearing lateral femoral condyle. No fracture. No joint effusion. Large loose osteochondral body versus heterotopic ossicle projecting over the suprapatellar pouch. IMPRESSION: 1. Severe medial compartment predominant tricompartmental osteoarthritis at the left knee. Reviewed, dictated and finalized at location A. BLE SHOOTER
== END 2025-04-16 10:06 | disposition home or self-care (01) ==
LOC: MICIMG 10:07
PROVIDERS: PCP Family Medicine; Visit Provider Student in an Organized Health Care Education/Training Program
DX: M19.012 Primary osteoarthritis, left shoulder (principal); M17.12 Unilateral primary osteoarthritis, left knee
CPT/HCPCS: 73030; 73560

== ENCOUNTER 2025-04-23 10:49 | Emergency (ER) | payer MEDICARE, SELFPAY ==
--- NOTE | 2025-04-23 11:11 | ED.FEMALEGU ---
HPI - Female Genitourinary General Chief complaint: Urogenital-Female Stated complaint: UTI Time Seen by Provider: 04/23/25 11:12 Source: patient, RN notes reviewed and old records reviewed Mode of arrival: ambulatory Limitations: no limitations History of Present Illness HPI Narrative: 84-year-old female presents to the [facility] with concerns for a UTI. Reports frequency, urgency and burning with urination since , 5 days. Patient states she has tried drinking it away. Has been drinking water and cranberry juice. Denies chest pain, fevers, abdominal pain. Denies nausea or vomiting. Related Data Home Medications ?Medication ?Instructions ?Recorded ?Confirmed ?Last Taken ?Type budesonide 160 mcg-glycopyr 9 2 inh inhalation BID 02/01/22 03/29/25 02/23/22 History mcg-formot 4.8 mcg/actuation HFA inhaler (Breztri [employer]) cholecalciferol (vitamin D3) 125 125 mcg PO DAILY 02/08/23 03/29/25 Unknown History mcg (5,000 unit) capsule Allergies Allergy/AdvReac Type Severity Reaction Status Date / Time oseltamivir (From Tamiflu) Allergy Severe ANGIOEDEMA/facial Verified 04/23/25 10:51 swelling Penicillins Allergy Mild rash Verified 04/23/25 10:51 Sulfa (Sulfonamide Allergy Mild Rash Verified 04/23/25 10:51 Antibiotics) Review of Systems Review of Systems: All systems reviewed & are unremarkable except as noted in HPI and below Constitutional: Constitutional: Reports no additional constitutional complaints Cardiovascular: Cardiovascular: Reports no additional cardiovascular complaints, Denies chest pain and Denies dyspnea Respiratory: Respiratory: Reports no additional respiratory complaints, Denies chest congestion, Denies cough and Denies dyspnea Gastrointestinal: Gastrointestinal: Reports no additional gastrointestinal complaints Genitourinary: Genitourinary: Reports as per HPI and Reports dysuria Musculoskeletal: Musculoskeletal: Reports no additional musculoskeletal complaints Integumentary/Breasts: Skin/Breast: Reports system reviewed and no additional complaints, except as docu PMFSH Past Medical History Medical History Hx of influenza Discharge from left nipple Ischemic stroke Left hand weakness Bronchitis, allergic COPD exacerbation Prepatellar bursitis, left knee Breast cancer screening Colon cancer screening Abnormal mammogram Crossover toe deformity of right foot JOSE on CPAP Post menopausal syndrome Upper respiratory infection Spasm of muscle of lower back Acute low back pain Constipation by delayed colonic transit Bursitis of right patella Poor appetite Anemia Pulmonary HTN Mixed hyperlipidemia Benign reactive hypertension COPD (chronic obstructive pulmonary disease) Diarrhea Surgical History Surgical History S/P EVELIA (total abdominal hysterectomy) H/O total knee replacement Family History Family History Mother Family history of kidney disease, Onset Age: 47 Patient's mother is Father Family history of kidney disease, Onset Age: 82 Patient's father is Sibling Patient's sister is Other Family history of chronic obstructive pulmonary disease Social History Social History Social History: Smoking packs per day: 0.5 Smoking cigarettes per day: 10.0 Years smoked: 30 Smoking pack-years: 15.00 Smoking status: Former smoker Tobacco type: cigarettes Second hand tobacco smoke exposure: No Smoking end date: 11/06/98 Alcohol intake: never Substance use: never Substance use type: does not use Lack of Transportation: No Lack of Food: Never True Current Housing: I Have Housing Concerned About Future Housing: No Difficulty Paying Gas/Electric Bills: No Difficulty Paying for Meds: No Currently Unemployed: YES Education: Decline to Answer Difficulty w/ Childcare or Family Care: No Living arrangements: alone Occupation/Education: retired Gender identity (if verbalized by the patient): Female Sexual Orientation (if Verbalized by the Patient): Straight or Heterosexual Spiritual care concerns: No Comments At the time of my signature, I reviewed and agree with the nursing past medical, surgical, social, and family history. There is no relevant family history pertinent to the patient complaint. Exam Const: General: cooperative, healthy appearing, comfortable, no acute distress, well developed, alert and well nourished Nutritional Appearance: well nourished Orientation/consciousness: patient oriented x3 Limitations: no limitations HENMT: Head: normal to inspection Mouth: Yes Normal oral and palatal mucosa present, Yes lip normal, Yes tongue normal and Yes moist mucous membranes Eyes: General: appearance normal, both eyes and all related structures Alignment and Position: alignment normal Neck: Neck: normal visual inspection, full ROM, no lymphadenopathy and no meningeal signs Chest: Chest palpation & inspection: normal inspection of the chest Resp: Effort & Inspection: normal respiratory effort and able to speak in complete sentences Auscultation: clear to auscultation bilaterally, no crackles, no rales, no rhonchi and no wheezes Cardio: Rate: regular rate GI: GI Palp: No abdominal tenderness and Yes Soft to palpation : General: Yes no CVA tenderness Skin: General skin exam: normal color and no rashes or lesions noted Neuro: General: patient oriented x3, gait normal, moves all extremities and no meningeal signs Cognition (Neuro): normal cognition Speech: normal speech Gait exam (Neuro): Normal gait present Extrem: General: normal to inspection, full ROM, capillary refill normal and normal gait Psych: Appearance: grossly normal and well kempt Mental Status: mental status grossly normal Speech and movement: Normal speech and movement present and Clear speech present Affect: normal affect Attitude: cooperative Course Course Level of Care: Express Care Visit Vital Signs Vital signs: Vital Signs Temperature 97.0 F L 04/23/25 11:16 Pulse Rate 86 04/23/25 11:16 Respiratory Rate 18 04/23/25 11:16 Blood Pressure 137/65 04/23/25 11:16 Pulse Oximetry 98 04/23/25 11:16 Oxygen Delivery Room Air 04/23/25 11:16 Temperature 97.0 F L 04/23/25 11:16 Pulse Rate 86 04/23/25 11:16 Respiratory Rate 18 04/23/25 11:16 Blood Pressure 137/65 04/23/25 11:16 Pulse Oximetry 98 04/23/25 11:16 Oxygen Delivery Room Air 04/23/25 11:16 reviewed MDM MDM Narrative Medical decision making narrative: Patient sitting in exam room. Patient is nontoxic, vitals stable. Patient presents with 5 day history of UTI symptoms. Positive leukocytes in urine dip, will culture. Patient has an allergy to amoxicillin, sulfa. Patient is 84 years old. Reviewed previous microbiology when he had some drug resistance to it. Will prescribe Cipro, discussed precautions such as leg pain to proceed to the emergency room but was follow-up with primary care provider. Discharge instructions reviewed with patient, as well as provided in writing per nursing staff. The instructions also include specific and strict return/GO TO THE ER as well as f/u information. All questions have been answered, and the patient deny any further questions with discharge and discharge plan. Some parts of this dictation were generated by voice recognition software and may contain typographical and/or grammatical inaccuracies. Differential Diagnosis Differential Diagnosis: Differential diagnostic considerations for female urogenital? issues include urinary tract infection, bacterial vaginosis, cervicitis, ovarian cyst, vaginitis, STI exposure, ovarian torsion, ectopic , cyst of Bartholin?s gland, cystitis, dysmenorrhea.?? Lab Data Labs: Lab Results 04/23/25 Range/Units 11:17 POC Urine Color Yellow POC Urine Clarity Clear POC Urine pH 6.0 POC Ur Specif [place] 1.010 POC Urine Protein Negative (Negative) POC Ur Glucose (UA) Negative (Negative) POC Urine Ketones Negative (Negative) POC Urine Blood Negative (Negative) POC Urine Nitrite Negative (Negative) POC Urine Bilirubin Negative (Negative) POC Urine Urobilinogen 0.2 POC U Leukocyte Esteras 1+ (Negative) Reviewed Discharge Plan Discharge Clinical Impression: Urinary tract infection Qualifiers: Urinary tract infection type: acute cystitis Hematuria presence: without hematuria Qualified Code(s): N30.00 - Acute cystitis without hematuria Patient Disposition: Home Condition: Stable Instructions: Antibiotic Form, Urinary Tract Infection in Older Adults (ED) Additional Instructions: Increased water intake Take Tylenol as needed for pain Take antibiotic as prescribed Today your urine dip showed a probability of a UTI. You have been prescribed an antibiotic. Your urine will be sent to our lab for a culture. If at that time a bacteria grows that is not covered by the antibiotic prescribed you will be notified. Follow-up with primary care For new or worsening symptoms go directly to the emergency room Patient Language: Azeri Prescriptions: New ciprofloxacin HCl 500 mg tablet 500 mg PO Q12H Qty: 10 0RF No Action Breztri [employer] 160-9-4.8 mcg/actuation HFA aerosol inhaler 2 inh INHALATION BID cholecalciferol (vitamin D3) 125 mcg (5,000 unit) capsule 125 mcg PO DAILY azelastine 137 mcg (0.1 %) aerosol,spray 137 mcg intranasal Q12H Qty: 30 0RF Rx Instructions: administer into each nostril Eliquis 5 mg tablet See Rx Instructions .ROUTE .COMPLEX Qty: 180 1RF Dose Instruction: TAKE 1 TABLET BY MOUTH TWICE A DAY Rx Instructions: TAKE 1 TABLET BY MOUTH TWICE A DAY albuterol sulfate 90 mcg/actuation HFA aerosol inhaler 1 inh inhalation Q4H PRN (Reason: shortness of breath or wheezing) Qty: 8.5 0RF carvedilol 12.5 mg tablet See Rx Instructions .ROUTE .COMPLEX Qty: 180 3RF Dose Instruction: TAKE 1 TABLET EVERY 12 HOURS DIRECTED (MUST ADMINISTER WITH A MEAL OR FOOD) Rx Instructions: TAKE 1 TABLET EVERY 12 HOURS DIRECTED (MUST ADMINISTER WITH A MEAL OR FOOD) famotidine 40 mg tablet See Rx Instructions .ROUTE .COMPLEX Qty: 90 3RF Dose Instruction: TAKE 1 TABLET EVERY DAY Rx Instructions: TAKE 1 TABLET EVERY DAY ferrous sulfate 325 mg (65 mg iron) tablet,delayed release (DR/EC) 325 mg PO DAILY Qty: 90 0RF hydrochlorothiazide 12.5 mg tablet See Rx Instructions .ROUTE .COMPLEX Qty: 90 3RF Dose Instruction: TAKE 1 TABLET EVERY DAY Rx Instructions: TAKE 1 TABLET EVERY DAY atorvastatin 40 mg tablet See Rx Instructions .ROUTE .COMPLEX Qty: 90 3RF Dose Instruction: TAKE 1 TABLET EVERY EVENING Rx Instructions: TAKE 1 TABLET EVERY EVENING tizanidine 2 mg tablet See Rx Instructions .ROUTE .COMPLEX Qty: 60 0RF Dose Instruction: TAKE 1 TABLET BY MOUTH 3 TIMES A DAY NEEDED FOR MUSCLE SPASTICITY Rx Instructions: TAKE 1 TABLET BY MOUTH 3 TIMES A DAY NEEDED FOR MUSCLE SPASTICITY Follow-up/Referrals: Deandre Givens MD [Primary Care Provider, Family Practice] Clinical Impression: Urinary tract infection Time of Disposition: 11:22
[2025-04-23 11:16] VITALS: BP 137/65; PULSE 86; RESP 18; TEMP 36.1; O2SAT 98
[2025-04-23 12:01] LABS: EDUAAPPEAR Clear; EDUABILI Negative (Negative); EDUABLOOD Negative (Negative); EDUACOLOR1 Yellow; EDUAGLUCOSE Negative (Negative); EDUAKETONE Negative (Negative); EDUALEUKO 1+ (Negative); EDUANITRATE Negative (Negative); EDUAPH 6.0; EDUAPROTEIN Negative (Negative); EDUASPGRAVITY 1.010; EDUAUROBILI 0.2
== END 2025-04-23 11:30 | disposition home or self-care (01) ==
PROVIDERS: Emergency Provider Nurse Practitioner; PCP Family Medicine
DX: N30.00 Acute cystitis without hematuria (principal); Z87.891 Personal history of nicotine dependence; J44.9 Chronic obstructive pulmonary disease, unspecified; G47.33 Obstructive sleep apnea (adult) (pediatric); I10 Essential (primary) hypertension; I27.20 Pulmonary hypertension, unspecified; E78.2 Mixed hyperlipidemia; D64.9 Anemia, unspecified; Z79.01 Long term (current) use of anticoagulants; Z86.73 Personal history of transient ischemic attack (TIA), and cerebral infarction without residual deficits
CPT/HCPCS: 81003; 87086; 99213; G0463